=== PATIENT | female | born 1955 | race Caucasian/White ===

== ENCOUNTER → 2016-10-30 | Outpatient (REF) | payer OTHER ==
[~2016-10-30] MED LIST: LEXA1TAB2 PO; PRAV1TAB39 PO; PROT1TAB2 PO
[2016-10-30 13:58] LABS: ALBUMIN 3.7 GM/DL (3.2-5.2); ALBUMIN/GLOBULIN RATIO 1.19 (1.00-1.93); ALKALINE PHOSPHATASE 108 U/L (45-117); ALT/SGPT 19 U/L (12-78); ANION GAP 5 MEQ/L (8-16); AST/SGOT 12 U/L (15-37); BILIRUBIN,TOTAL 0.3 MG/DL (0.2-1.0); BLOOD UREA NITROGEN 16 MG/DL (7-18); CALCIUM LEVEL 8.9 MG/DL (8.8-10.2); CARBON DIOXIDE LEVEL 29 MEQ/L (21-32); CHLORIDE LEVEL 107 MEQ/L (98-107); CHOLESTEROL LEVEL 213 MG/DL (<200); CREATININE FOR GFR 0.84 MG/DL (0.55-1.02); GLOMERULAR FILTRATION RATE > 60.0 (>45); GLUCOSE, FASTING 82 MG/DL (80-110); POTASSIUM SERUM 4.4 MEQ/L (3.5-5.1); SODIUM LEVEL 141 MEQ/L (136-145); TOTAL PROTEIN 6.8 GM/DL (6.4-8.2); TRIGLYCERIDES LEVEL 130 MG/DL (<150)
== END ==
LOC: M SFHCPLAZ 10:29
PROVIDERS: ATTEND Internal Medicine
DX: E78.00 Pure hypercholesterolemia, unspecified (principal); E55.9 Vitamin D deficiency, unspecified

== ENCOUNTER → 2016-11-16 | Outpatient (CLI) | payer OTHER ==
--- NOTE | 2016-11-17 08:35 | REP ---
Clinical: Lung screening. History smoking. Comparison: None Technique: Axial low-dose noncontrast images from the thoracic inlet to the upper abdomen using lung screening technique. Findings: The lung matias are well-aerated. Two noncalcified pulmonary nodules are identified in the left upper lobe measuring up to 8 mm along with small scattered 2 mm nodules. No pleural effusion/reaction or pneumothorax. Tracheobronchial tree is patent. Mediastinum demonstrates mild atherosclerotic changes of the coronary arteries without cardiomegaly. Impression: Lung-RADS category IV-A. Recommendations include 3-month low-dose CT scan. . Signed by Carlos Venegas MD 11/17/2016 08:26 A
== END ==
LOC: M RAD 11:33
PROVIDERS: ATTEND Internal Medicine
DX: Z12.2 Encounter for screening for malignant neoplasm of respiratory organs (principal); F17.210 Nicotine dependence, cigarettes, uncomplicated; R91.1 Solitary pulmonary nodule

== ENCOUNTER → 2017-02-20 | Outpatient (CLI) | payer OTHER ==
--- NOTE | 2017-02-20 14:04 | REP ---
Clinical: Followup lung nodules. Technique: Low-dose CT pulmonary screening technique. Findings: 8 mm noncalcified pulmonary nodule in the left upper lobe (image 21) and left lower lobe (image 64) along with few scattered smaller noncalcified nodules up to 2 mm remain stable. No new consolidation, nodule or mass lesion is appreciated. No pleural effusion/reaction. No pneumothorax. Tracheobronchial tree is patent. No definite adenopathy noted. Impression: Stable appearance to the noncalcified nodules measuring up to approximately 8 mm short axis diameter. Follow-up examination and 6-[address] may be considered for further evaluation and follow-up. Signed by Carlos Venegas MD 02/20/2017 01:56 P
== END ==
LOC: M RAD 13:30
PROVIDERS: ATTEND Internal Medicine
DX: R91.1 Solitary pulmonary nodule (principal)

== ENCOUNTER → 2017-05-14 | Outpatient (REF) | payer OTHER ==
[2017-05-14 13:04] LABS: MEAN CORPUSCULAR HGB CONC 32.7 g/dl (32.0-36.5); MEAN CORPUSCULAR VOLUME 88.8 fl (80.0-96.0); PLATELET COUNT, AUTOMATED 334 10^3/uL (150-450); RED CELL DISTRIBUTION WIDTH 13.3 % (11.5-14.5); WHITE BLOOD COUNT 9.3 10^3/uL (4.0-10.0)
[2017-05-14 13:30] LABS: ALBUMIN 3.9 GM/DL (3.2-5.2); ALBUMIN/GLOBULIN RATIO 1.26 (1.00-1.93); ALKALINE PHOSPHATASE 111 U/L (45-117); ALT/SGPT 21 U/L (12-78); ANION GAP 9 MEQ/L (8-16); AST/SGOT 13 U/L (7-37); BILIRUBIN,TOTAL 0.3 MG/DL (0.2-1.0); BLOOD UREA NITROGEN 16 MG/DL (7-18); CALCIUM LEVEL 9.5 MG/DL (8.8-10.2); CARBON DIOXIDE LEVEL 29 MEQ/L (21-32); CHLORIDE LEVEL 103 MEQ/L (98-107); CHOLESTEROL LEVEL 248 MG/DL (<200); CREATININE FOR GFR 0.83 MG/DL (0.55-1.02); GLOMERULAR FILTRATION RATE > 60.0 (>45); GLUCOSE, FASTING 92 MG/DL (80-110); POTASSIUM SERUM 4.1 MEQ/L (3.5-5.1); SODIUM LEVEL 141 MEQ/L (136-145); TRIGLYCERIDES LEVEL 162 MG/DL (<150)
== END ==
LOC: M SFHCPLAZ 08:25
PROVIDERS: ATTEND Internal Medicine
DX: F51.01 Primary insomnia (principal); K21.9 Gastro-esophageal reflux disease without esophagitis; R73.01 Impaired fasting glucose; E78.00 Pure hypercholesterolemia, unspecified; F34.1 Dysthymic disorder

== ENCOUNTER 2017-07-21 19:13 | Emergency (ER) | payer OTHER ==
[2017-07-21] MEDS: NS 1,000 ML IV (20:57)
[2017-07-21] MEDS: KETOROLAC 30 MG/ML VIAL (J1885) IV (20:57)
[2017-07-21] MEDS: ONDANSETRON 4MG/2ML VIAL (J2405) IV (20:57)
[2017-07-21 21:01] LABS: BASO # 0.1 10^3/uL (0.0-0.2); BASO % 0.4 % (0.0-1.0); EOS # 0.3 10^3/uL (0.0-0.50); EOS % 1.9 % (0.0-3.0); HEMATOCRIT 43.8 % (36.0-47.0); HEMOGLOBIN 14.9 g/dl (12.0-16.0); IMMATURE GRANULOCYTE # 0.1 10^3/uL (0-0); IMMATURE GRANULOCYTE % 0.3 % (0-0); LYMPH # 2.5 10^3/uL (1.5-4.5); LYMPH % 17.3 % (24.0-44.0); MEAN CORPUSCULAR HEMOGLOBIN 29.6 pg (27.0-33.0); MEAN CORPUSCULAR VOLUME 86.9 fl (80.0-96.0); MONO % 6.9 % (0.0-5.0); NEUTROPHILS # 10.6 10^3/uL (1.8-7.7); NEUTROPHILS % 73.2 % (36.0-66.0); PLATELET COUNT, AUTOMATED 307 10^3/uL (150-450); RED BLOOD COUNT 5.04 10^6/uL (4.00-5.40); RED CELL DISTRIBUTION WIDTH 12.9 % (11.5-14.5); WHITE BLOOD COUNT 14.4 10^3/uL (4.0-10.0)
[2017-07-21 21:11] LABS: INR 0.94; PROTHROMBIN TIME 12.7 SECONDS (12.4-14.5)
[2017-07-21 21:12] LABS: PARTIAL THROMBOPLASTIN TIME 29.6 SECONDS (26.8-37.9)
[2017-07-21 21:21] LABS: KETONE, URINE AUTO RFX NEGATIVE (NEGATIVE); LEUKOCYTE ESTERASE UR AUTO RFX NEGATIVE (NEGATIVE); MUCUS, URINE RFX SMALL (NEGATIVE); NITRITE, URINE AUTO RFX NEGATIVE (NEGATIVE); RBC, URINE AUTO RFX 11 /HPF (0-3); SPECIFIC GRAVITY UR AUTO RFX 1.015 (1.002-1.035); SQUAM EPITHELIAL CELL UR AURFX 1 /HPF (0-6); WBC, URINE AUTO RFX 1 /HPF (0-3)
[2017-07-21 21:29] LABS: ALBUMIN 3.8 GM/DL (3.2-5.2); ALBUMIN/GLOBULIN RATIO 0.97 (1.00-1.93); ALKALINE PHOSPHATASE 108 U/L (45-117); ALT/SGPT 20 U/L (12-78); ANION GAP 6 MEQ/L (8-16); AST/SGOT 8 U/L (7-37); BILIRUBIN,DIRECT < 0.1 MG/DL (0.0-0.2); BILIRUBIN,TOTAL 0.4 MG/DL (0.2-1.0); BLOOD UREA NITROGEN 11 MG/DL (7-18); CALCIUM LEVEL 9.1 MG/DL (8.8-10.2); CARBON DIOXIDE LEVEL 28 MEQ/L (21-32); CHLORIDE LEVEL 104 MEQ/L (98-107); CREATININE FOR GFR 0.83 MG/DL (0.55-1.30); GLOMERULAR FILTRATION RATE > 60.0 (>45); GLUCOSE, FASTING 90 MG/DL (70-100); LIPASE 98 U/L (73-393); POTASSIUM SERUM 3.8 MEQ/L (3.5-5.1); SODIUM LEVEL 138 MEQ/L (136-145); TOTAL PROTEIN 7.7 GM/DL (6.4-8.2)
[2017-07-21] MEDS ORDERED: ISOVUE-370 76% 100ML VIAL (Q9967) As Ordered (21:35)
[2017-07-21] MEDS: metroNIDAZOLE (FLAGYL) 500 MG TAB PO (22:15)
[2017-07-21] MEDS: CIPROFLOXACIN 500 MG TAB PO (22:15)
[2017-07-21] MEDS: OXYCODONE/APAP 5MG/325MG(BULK FOR ED) 1 TABLET PO (22:15)
== END 2017-07-21 22:38 | disposition home or self-care (01) ==
LOC: M ED 19:13
DX: K57.92 Diverticulitis of intestine, part unspecified, without perforation or abscess without bleeding (principal); Z79.899 Other long term (current) drug therapy; Z88.2 Allergy status to sulfonamides; F17.210 Nicotine dependence, cigarettes, uncomplicated
CPT/HCPCS: J2405

== ENCOUNTER → 2017-08-14 | Outpatient (CLI) | payer OTHER ==
[2017-08-14 15:20] LABS: BASO # 0.1 10^3/uL (0.0-0.2); BASO % 0.7 % (0.0-1.0); EOS # 0.4 10^3/uL (0.0-0.50); HEMATOCRIT 44.9 % (36.0-47.0); HEMOGLOBIN 14.7 g/dl (12.0-16.0); IMMATURE GRANULOCYTE % 0.4 % (0-3.0); LYMPH # 2.7 10^3/uL (1.5-4.5); LYMPH % 27.6 % (24.0-44.0); MEAN CORPUSCULAR HEMOGLOBIN 29.3 pg (27.0-33.0); MEAN CORPUSCULAR HGB CONC 32.7 g/dl (32.0-36.5); MEAN CORPUSCULAR VOLUME 89.6 fl (80.0-96.0); MONO # 0.6 10^3/uL (0.0-0.8); MONO % 6.4 % (0.0-5.0); NEUTROPHILS # 5.9 10^3/uL (1.8-7.7); NEUTROPHILS % 60.9 % (36.0-66.0); PLATELET COUNT, AUTOMATED 338 10^3/uL (150-450); RED BLOOD COUNT 5.01 10^6/uL (4.00-5.40); RED CELL DISTRIBUTION WIDTH 13.8 % (11.5-14.5); WHITE BLOOD COUNT 9.6 10^3/uL (4.0-10.0)
== END ==
LOC: M LAB 14:31
DX: K57.32 Diverticulitis of large intestine without perforation or abscess without bleeding (principal)

== ENCOUNTER → 2017-11-21 | Outpatient (REF) | payer OTHER ==
[2017-11-21 12:43] LABS: ALBUMIN 3.9 GM/DL (3.2-5.2); ALKALINE PHOSPHATASE 118 U/L (45-117); ALT/SGPT 19 U/L (12-78); ANION GAP 8 MEQ/L (8-16); AST/SGOT 6 U/L (7-37); BILIRUBIN,TOTAL 0.4 MG/DL (0.2-1.0); BLOOD UREA NITROGEN 13 MG/DL (7-18); CALCIUM LEVEL 9.3 MG/DL (8.8-10.2); CARBON DIOXIDE LEVEL 27 MEQ/L (21-32); CHLORIDE LEVEL 105 MEQ/L (98-107); CHOLESTEROL LEVEL 204 MG/DL (<200); CHOLESTEROL RISK RATIO 6.181 (<5); CREATININE FOR GFR 0.77 MG/DL (0.55-1.30); GLOMERULAR FILTRATION RATE > 60.0 (>45); GLUCOSE, FASTING 88 MG/DL (70-100); HDL CHOLESTEROL 33 MG/DL (>40); NON-HDL-C 171 MG/DL; POTASSIUM SERUM 4.5 MEQ/L (3.5-5.1); SODIUM LEVEL 140 MEQ/L (136-145); TOTAL PROTEIN 6.9 GM/DL (6.4-8.2); TRIGLYCERIDES LEVEL 135 MG/DL (<150)
== END ==
LOC: M SFHCPLAZ 10:21
DX: R73.01 Impaired fasting glucose (principal); E78.00 Pure hypercholesterolemia, unspecified

== ENCOUNTER → 2017-11-28 | Outpatient (CLI) | payer OTHER | LOC: M WUC 10:42 | DX: M79.671 Pain in right foot (principal) | CPT/HCPCS: 73630 ==

== ENCOUNTER → 2018-01-14 | Outpatient (REF) | payer OTHER ==
[2018-01-14 14:11] LABS: BASO # 0.1 10^3/uL (0.0-0.2); BASO % 0.7 % (0.0-1.0); EOS # 0.3 10^3/uL (0.0-0.50); EOS % 3.5 % (0.0-3.0); HEMATOCRIT 45.5 % (36.0-47.0); HEMOGLOBIN 15.3 g/dl (12.0-15.5); IMMATURE GRANULOCYTE % 0.4 % (0-3.0); LYMPH # 2.5 10^3/uL (1.5-4.5); LYMPH % 29.7 % (24.0-44.0); MEAN CORPUSCULAR HGB CONC 33.6 g/dl (32.0-36.5); MEAN CORPUSCULAR VOLUME 89.2 fl (80.0-96.0); MONO # 0.5 10^3/uL (0.0-0.8); MONO % 5.6 % (0.0-5.0); NEUTROPHILS % 60.1 % (36.0-66.0); PLATELET COUNT, AUTOMATED 283 10^3/uL (150-450); RED CELL DISTRIBUTION WIDTH 13.2 % (11.5-14.5); WHITE BLOOD COUNT 8.4 10^3/uL (4.0-10.0)
[2018-01-16 00:14] LABS: ANTINUCLEAR ANTIBODIES DIRECT Negative (Negative); Lyme Disease IgG/IgM Antibodie <0.91 ISR (0.00-0.90); Lyme Disease IgM Ab Quantitati <0.80 index (0.00-0.79)
== END ==
LOC: M SFHCPLAZ 12:15
DX: S30.860A Insect bite (nonvenomous) of lower back and pelvis, initial encounter (principal); L50.9 Urticaria, unspecified; W18.30XA Fall on same level, unspecified, initial encounter; Y92.009 Unspecified place in unspecified non-institutional (private) residence as the place of occurrence of the external cause

== ENCOUNTER → 2018-03-25 | Outpatient (CLI) | payer OTHER | LOC: M RAD 10:43 | DX: R91.8 Other nonspecific abnormal finding of lung field (principal) | CPT/HCPCS: 71250 ==

== ENCOUNTER → 2018-07-30 | Outpatient (CLI) | payer OTHER ==
[~2018-07-30] MED LIST changes: +CIPR-249 PO; +FLAG500T PO; +PROBCAP4 PO; +STOO100C PO; +ZOFR4TAB14 PO
--- NOTE | 2018-07-30 15:41 | REP ---
Chest two views HISTORY: Cough Comparison: 08/14/2011 The lungs are clear. The heart is normal in size. The pulmonary vasculature is normal in appearance. The bony structure is intact. IMPRESSION: No acute disease. Electronically Signed by Santos Salcedo MD 07/30/2018 03:32 P
== END ==
LOC: M WUC 14:24
PROVIDERS: ATTEND Internal Medicine
DX: R05 Cough (principal)

== ENCOUNTER → 2018-09-12 | Outpatient (REF) | payer OTHER ==
[2018-09-12 14:16] LABS: ALBUMIN 3.8 GM/DL (3.2-5.2); ALT/SGPT 21 U/L (12-78); BILIRUBIN,TOTAL 0.3 MG/DL (0.2-1.0); BLOOD UREA NITROGEN 15 MG/DL (7-18); CALCIUM LEVEL 9.5 MG/DL (8.8-10.2); CARBON DIOXIDE LEVEL 27 MEQ/L (21-32); CHLORIDE LEVEL 105 MEQ/L (98-107); CHOLESTEROL LEVEL 226 MG/DL (<200); CHOLESTEROL RISK RATIO 5.947 (<5); CREATININE FOR GFR 0.77 MG/DL (0.55-1.30); GLOMERULAR FILTRATION RATE > 60.0 (>45); GLUCOSE, FASTING 87 MG/DL (70-100); HDL CHOLESTEROL 38 MG/DL (>40); LDL CHOLESTEROL 164 MG/DL (<100); NON-HDL-C 188 MG/DL; POTASSIUM SERUM 4.2 MEQ/L (3.5-5.1); SODIUM LEVEL 141 MEQ/L (136-145); TOTAL PROTEIN 6.9 GM/DL (6.4-8.2); TRIGLYCERIDES LEVEL 120 MG/DL (<150)
[2018-09-12 14:22] LABS: TOTAL 25(OH) VITAMIN D 101.8 NG/ML (30.0-100.0)
== END ==
LOC: M SFHCPLAZ 11:21
PROVIDERS: ATTEND Internal Medicine
DX: R73.01 Impaired fasting glucose (principal); E78.00 Pure hypercholesterolemia, unspecified; E55.9 Vitamin D deficiency, unspecified

== ENCOUNTER → 2018-09-25 | Outpatient (CLI) | payer OTHER ==
--- NOTE | 2018-09-25 15:29 | REPMRS ---
Patient History The patient states she has not had a clinical breast exam in over a year. Patient is postmenopausal and is nulliparous. Family history of colorectal cancer under age 50 in father, endometrial cancer at age 50 or over in mother. Digital Woman Screen Mammo: September 25, 2018 - Exam #: [id number] Bilateral CC and MLO view(s) were taken. Technologist: Jaki Beckford, Technologist Prior study comparison: November 05, 2015, digital woman screen mammo performed at [facility]. July 12, 2010, bilateral screening mammogram, performed at [facility]. FINDINGS: There are scattered fibroglandular densities. There has been no change in the appearance of the mammogram from the prior studies. There is a mild amount of scattered fibroglandular density which is fairly symmetric. There is no interval development of dominant mass, architectural distortion, or clustered microcalcification suggestive of malignancy. 3-D tomosynthesis shows no additional findings. Assessment: BI-RADS/ACR category 1 mammogram. Negative Mammogram. Recommendation Routine screening mammogram of both breasts in 1 year (for women over age 40). This patient's Lifetime Breast Cancer RIsk is estimated at 7.5 %. This mammogram was interpreted with the aid of an FDA-approved computer-aided dectection system. Electronically Signed By: Darrius Olson MD 09/25/18 [id number]
== END ==
LOC: M WHC 11:59
PROVIDERS: ATTEND Internal Medicine
DX: Z12.31 Encounter for screening mammogram for malignant neoplasm of breast (principal); Z78.0 Asymptomatic menopausal state; Z80.0 Family history of malignant neoplasm of digestive organs; Z80.49 Family history of malignant neoplasm of other genital organs

== ENCOUNTER 2018-11-27 10:59 | Emergency (ER) | payer OTHER ==
[~2018-11-27] VITALS: Ht 160 cm; Wt 81.7 kg
[2018-11-27] MEDS ORDERED: VITATAB26 PO (11:11)
[2018-11-27] MEDS ORDERED: NS 1,000 ML IV ONE (12:45)
[2018-11-27] MEDS ORDERED: GASTROGRAFIN SOLUTION 30ML (Q9963) As Ordered ONE (12:50)
[2018-11-27 12:57] LABS: BASO # 0.1 10^3/uL (0.0-0.2); EOS # 0.2 10^3/uL (0.0-0.50); EOS % 2.7 % (0.0-3.0); HEMATOCRIT 44.2 % (36.0-47.0); HEMOGLOBIN 14.6 g/dl (12.0-15.5); LYMPH # 2.3 10^3/uL (1.5-4.5); LYMPH % 33.6 % (24.0-44.0); MEAN CORPUSCULAR HEMOGLOBIN 29.4 pg (27.0-33.0); MEAN CORPUSCULAR VOLUME 89.1 fl (80.0-96.0); MONO # 0.4 10^3/uL (0.0-0.8); MONO % 5.5 % (0.0-5.0); NEUTROPHILS # 3.9 10^3/uL (1.8-7.7); NEUTROPHILS % 56.9 % (36.0-66.0); PLATELET COUNT, AUTOMATED 318 10^3/uL (150-450); RED BLOOD COUNT 4.96 10^6/uL (4.00-5.40); WHITE BLOOD COUNT 6.8 10^3/uL (4.0-10.0)
[2018-11-27 13:24] LABS: BLOOD UREA NITROGEN 12 MG/DL (7-18); CALCIUM LEVEL 9.3 MG/DL (8.8-10.2); CARBON DIOXIDE LEVEL 26 MEQ/L (21-32); CHLORIDE LEVEL 106 MEQ/L (98-107); CREATININE FOR GFR 0.88 MG/DL (0.55-1.30); GLOMERULAR FILTRATION RATE > 60.0 (>45); GLUCOSE, FASTING 89 MG/DL (70-100); POTASSIUM SERUM 4.1 MEQ/L (3.5-5.1); SODIUM LEVEL 141 MEQ/L (136-145)
[2018-11-27] MEDS ORDERED: ISOVUE-370 76% 100ML VIAL (Q9967) As Ordered ONE (13:30)
--- NOTE | 2018-11-27 14:16 | REP ---
CT ABDOMEN PELVIS WITH IV AND RECTAL CONTRAST. HISTORY: Pelvic pain. Brown vaginal discharge. 100 mL of intravenous Isovue 370 is administered in addition to rectal Gastrografin. CT FINDINGS: Digital preliminary tower switch operator radiograph shows an unremarkable bowel gas pattern. The lung bases are free of infiltrate. There is however a phoenix-bronchovascular noncalcified pulmonary nodule in the left lower lobe which measures 12 mm in greatest diameter. This nodule has been previously noted. In November 16, 2016 it measured 11 mm. It is felt to be unchanged. The liver and the spleen are normal in size. There are several left lobe hepatic cysts. The largest of these measures 3.1 cm in greatest diameter. These are unchanged from a December 07, [address] study. No focal liver mass lesion is seen. Spleen is unremarkable. No adrenal lesion is observed on either side. The pancreas is unremarkable. Gallbladder surgically absent. There is a tiny cortical cyst in the right kidney. No hydronephrosis is seen. No retroperitoneal mass or adenopathy is seen. The left colon is opacified from the rectum proximally to the mid transverse colon segment. There is no evidence of extravasation. There is however extensive diverticulosis in the sigmoid colon. This is seen associated with a fistulous tract extending from the anterior and inferior margin of the sigmoid colon to what appears to be the superior aspect of the vagina. There is inflammatory thickening of the dome of the bladder wall as well adjacent to this. 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 No evidence of free air or abscess cavity. IMPRESSION: Extensive diverticulosis sigmoid colon with mural thickening consistent with diverticulitis. A very small fistulous tract appears to be present between this segment of the sigmoid colon and the vaginal fornix. Uterus is surgically absent as is the gallbladder. Lung nodule is seen. Electronically Signed by Rogelio Olson MD 11/27/2018 08:30 P
[2018-11-27] MEDS ORDERED: FLAG500T PO (14:48)
[2018-11-27] MEDS ORDERED: CIPR-249 PO (14:48)
[2018-11-27] MEDS ORDERED: MIRA3350 PO (14:48)
[2018-11-27] MEDS ORDERED: COLA100C5 PO (14:48)
[2018-11-27 14:55] VITALS: BP 153/74
--- NOTE | 2018-11-29 06:48 | ED PDOC ---
Post-Departure Follow-Up dr linton and dr hood faxed formal report of ct abd/p for fu Fredrick Lewis MD Nov 29, 2018 06:48
== END 2018-11-27 15:16 | disposition home or self-care (01) ==
LOC: M ED 10:59
DX: N82.3 Fistula of vagina to large intestine (principal); K57.32 Diverticulitis of large intestine without perforation or abscess without bleeding; R91.1 Solitary pulmonary nodule; Z72.0 Tobacco use; Z79.899 Other long term (current) drug therapy; Z88.2 Allergy status to sulfonamides; Z88.0 Allergy status to penicillin
CPT/HCPCS: 74177; 80048; 81001; 85025; 86850; 86900; 86901; 96360; 96361; 99284; Q9963; Q9967

== ENCOUNTER → 2018-12-18 | Outpatient (CLI) | payer OTHER ==
[~2018-12-18] MED LIST changes: +COLA100C5 PO; +GASTROGRAFIN SOLUTION 30ML (Q9963) As Ordered ONE; +ISOVUE-370 76% 100ML VIAL (Q9967) As Ordered ONE; +MIRA3350 PO; +MM S100C PO; -STOO100C PO; +VITATAB26 PO
--- NOTE | 2018-12-18 16:11 | REP ---
HISTORY: Diverticulitis. COMPARISON: Multiple, the latest 11/27/2018. CONTRAST: 100 mL of Isovue-370. In the left lung base there is an unchanged nodule measuring 1.3 cm and stable from the low dose screening CT exam of the lungs of 11/16/2016. There are no pleural or pericardial effusions. There are multiple hepatic cysts, status quo. The liver and spleen are again seen to be within normal limits. There is benign left adrenal gland thickening, stable from at least 12/07/2015. The pancreas and kidneys are unremarkable and unchanged. The right adrenal gland is normal. The abdominal aorta and periaortic regions are within normal limits and essentially unchanged. The intraabdominal bowel loops and the mesenteries are again seen to be within normal limits and are essentially unchanged. No free fluid or free air is in the abdomen. CT PELVIS: Note is again made of sigmoid colon wall thickening and mild perisigmoidal fatty infiltration. This has improved from the prior exam, but only slightly. There is no evidence of an abscess. There is no free fluid or free air. There is no mass or adenopathy. Bone window technique throughout the exam shows the osseous structures to be stable and intact. IMPRESSION: 1. Improved but not yet resolved sigmoid colon diverticulitis. Consider colonoscopy to assess for an underlying neoplasm. 2. Other findings and chronic changes as described above. Electronically Signed by Tremayne Patel DO 12/18/2018 04:28 P
== END ==
LOC: M RAD 12:28
PROVIDERS: ATTEND Surgery
DX: K57.32 Diverticulitis of large intestine without perforation or abscess without bleeding (principal)
CPT/HCPCS: 74177; Q9963; Q9967

== ENCOUNTER → 2018-12-26 | Outpatient (REF) | payer OTHER ==
[~2018-12-26] MED LIST changes: -GASTROGRAFIN SOLUTION 30ML (Q9963) As Ordered ONE; -ISOVUE-370 76% 100ML VIAL (Q9967) As Ordered ONE
[2018-12-26 17:14] LABS: CLOSTRIDIUM DIFFICILE PCR POSITIVE (NEGATIVE)
== END ==
LOC: M LAB REF 13:42
PROVIDERS: ATTEND Surgery
DX: K57.32 Diverticulitis of large intestine without perforation or abscess without bleeding (principal)

== ENCOUNTER → 2019-01-02 | Outpatient (REF) | payer OTHER | LOC: M SFHCPLAZ 10:01 | PROVIDERS: ATTEND Family Medicine | DX: R21 Rash and other nonspecific skin eruption (principal) ==

== ENCOUNTER → 2019-02-05 | Outpatient (REF) | payer OTHER ==
[~2019-02-05] MED LIST changes: +ACE65ERTAB PO; +METR-265; +NEOM500T; +SUPRSOL2
[2019-02-05 14:48] LABS: ALBUMIN 3.7 GM/DL (3.2-5.2); ALT/SGPT 15 U/L (12-78); BILIRUBIN,TOTAL 0.2 MG/DL (0.2-1.0); BLOOD UREA NITROGEN 16 MG/DL (7-18); CALCIUM LEVEL 9.6 MG/DL (8.8-10.2); CARBON DIOXIDE LEVEL 28 MEQ/L (21-32); CHLORIDE LEVEL 105 MEQ/L (98-107); CHOLESTEROL LEVEL 214 MG/DL (<200); CHOLESTEROL RISK RATIO 5.783 (<5); CREATININE FOR GFR 0.79 MG/DL (0.55-1.30); GLOMERULAR FILTRATION RATE > 60.0 (>45); GLUCOSE, FASTING 83 MG/DL (70-100); HDL CHOLESTEROL 37 MG/DL (>40); LDL CHOLESTEROL 147 MG/DL (<100); NON-HDL-C 177 MG/DL; POTASSIUM SERUM 4.3 MEQ/L (3.5-5.1); SODIUM LEVEL 140 MEQ/L (136-145); TOTAL PROTEIN 7.1 GM/DL (6.4-8.2); TRIGLYCERIDES LEVEL 148 MG/DL (<150)
[2019-02-05 15:13] LABS: HEMOGLOBIN A1c 6.4 %
== END ==
LOC: M SFHCPLAZ 12:06
PROVIDERS: ATTEND Internal Medicine
DX: E78.00 Pure hypercholesterolemia, unspecified (principal); R73.01 Impaired fasting glucose; F34.1 Dysthymic disorder

== ENCOUNTER 2019-02-11 05:58 | Inpatient (IN) | payer OTHER ==
--- NOTE | 2019-02-10 15:44 | HPE ---
DATE OF ADMISSION: 02/11/2019 HISTORY OF PRESENT ILLNESS: The patient is a 64-year-old female who presents with several episodes of diverticulitis in the past, actually with a probable diverticular abscess that drained spontaneously through her vagina and essentially has had some persistent partial obstructive complaints since that time with abdominal pain and lower abdominal pressure or discomfort and change in bowel habits. She now presents for treatment of recurrent episodes of diverticulitis. PAST MEDICAL HISTORY: Her past medical history is significant for history of hysterectomy, history of gallbladder surgery, history of cholecystectomy, history of hyperlipidemia, depression, anxiety. MEDICATIONS: - Carafate - Crestor - Estrace - Lexapro - Metamucil - Protonix - stool softener - vitamin D She is undergoing a mechanical, as well as antibiotic bowel prep. PHYSICAL EXAMINATION: Reveals a 64-year-old chronic smoker who looks stated age. HEENT is unremarkable. Neck: Supple without adenopathy. Lungs are diminished bilaterally with a few crackles and wheezes appreciated at the bases. Heart is regular. Abdomen is soft, nondistended, mildly tender with deep palpation in left lower quadrant and suprapubic area. Extremities: Warm, well-perfused. IMPRESSION AND PLAN: The patient has evidence of recurrent episodes of diverticulitis of the sigmoid colon. My recommendation is to proceed with a laparoscopic sigmoid colectomy with low anterior anastomosis. The risks, as well as benefits have been discussed with her at length, those including but not limited to infection, bleeding, damage to surrounding structures including bowel, bladder nerve vessels, possible need for open operative intervention, possible anastomotic leak or colostomy placement. She would like to proceed with this as scheduled and understands she will be going through a mechanical, as well as antibiotic bowel prep and receive IV antibiotics preoperatively. Will have thromboembolic compression stockings (TEDS), Wang catheter placed intraoperatively and postoperatively and will need postoperative hospitalization for typically 3-5 days. She understands and agrees to the above.
[~2019-02-11] VITALS: Ht 160 cm; Wt 75.6 kg
[2019-02-11] VITALS (10 sets, daily range): BP systolic 118–160; BP diastolic 60–78
[~2019-02-11 05:58] MED LIST changes: -METR-265; -NEOM500T; -SUPRSOL2
[2019-02-11] MEDS ORDERED: LIDOCAINE 1% MDV 20ML VIAL SQ PRN (06:00)
[2019-02-11] MEDS ORDERED: ERTAPENEM SODIUM 1 GM in NS MINI-BAG PLUS 50 ML IV ONE (06:00)
[2019-02-11] MEDS ORDERED: LR 1,000 ML IV ONE (06:00)
[2019-02-11] MEDS ORDERED: BUPIVACAINE HCL 0.25% 30 ML VIAL As Ordered ONE (06:56)
[2019-02-11] MEDS ORDERED: GLUCAGON FOR INJ 1 MG VIAL (J1610) As Ordered ONE ×2 (06:56→09:04)
[2019-02-11] MEDS ORDERED: BUPIVACAINE/EPIN 0.5% 30 ML VIAL As Ordered ONE (06:57)
[2019-02-11] MEDS ORDERED: BUPIVACAINE LIPOSOME/PF 1.3% 20ML VIAL (13.3MG/ML)(EXPAREL)(C9290 PER1MG) As Ordered ONE (06:57)
[2019-02-11] MEDS ORDERED: SUPRSOL2 (07:11)
[2019-02-11] MEDS ORDERED: NEOM500T (07:11)
[2019-02-11] MEDS ORDERED: METR-265 (07:11)
[2019-02-11] MEDS ORDERED: SCOPOLAMINE 1MG TRANSDERMAL PATCH As Ordered ONE (07:28)
[2019-02-11] MEDS ORDERED: ONDANSETRON 4MG/2ML VIAL (J2405) As Ordered ONE ×2 (07:49→07:50)
[2019-02-11] MEDS ORDERED: LIDOCAINE 2% INJ 100 MG/5 ML SDV (FOR ANES.) As Ordered ONE (07:49)
[2019-02-11] MEDS ORDERED: PROPOFOL 200 MG/20 ML VIAL As Ordered ONE (07:49)
[2019-02-11] MEDS ORDERED: MIDAZOLAM INJ 2 MG/2 ML VIAL (J2250) As Ordered ONE (07:49)
[2019-02-11] MEDS ORDERED: HYDROmorphone HCL 2 MG/ML 1ML VIAL (J1170) As Ordered ONE (07:49)
[2019-02-11] MEDS ORDERED: dexameTHASONE 4 MG/ML 1ML VIAL (J1100) As Ordered ONE (07:49)
[2019-02-11] MEDS ORDERED: SUGAMMADEX SODIUM 500 MG/5 ML VIAL (BRIDION) As Ordered ONE (07:49)
[2019-02-11] MEDS ORDERED: PHENYLephrine HCL 500 MCG/5 ML (100MCG/ML) SYRINGE (J2370) As Ordered ONE (07:49)
[2019-02-11] MEDS ORDERED: ROCURONIUM BROMIDE 50 MG/5 ML VIAL As Ordered ONE ×3 (07:49→11:36)
[2019-02-11] MEDS ORDERED: fentaNYL 250 MCG/5 ML INJECTION (J3010) As Ordered ONE (07:49)
[2019-02-11] MEDS ORDERED: METOCLOPRAMIDE INJ 10MG/2ML VIAL (J2765) As Ordered ONE ×2 (07:49→07:50)
[2019-02-11] MEDS ORDERED: LIDOCAINE 2% JELLY 6 ML SYRINGE As Ordered ONE (07:50)
[2019-02-11] MEDS ORDERED: KETOROLAC 60 MG/2 ML VIAL (J1885) As Ordered ONE (08:06)
[2019-02-11] MEDS ORDERED: SEVOFLURANE INHAL SOLN 250 ML BTL As Ordered ONE (08:10)
[2019-02-11] MEDS ORDERED: ACETAMINOPHEN 1000MG 100ML IV BTL (OFIRMEV) (J0131 PER 10MG) As Ordered ONE (08:31)
[2019-02-11] MEDS ORDERED: DESFLURANE 240 ML INHALANT As Ordered ONE (10:01)
[2019-02-11] MEDS ORDERED: EPIDURAL/PCA KEYS XX PRN (10:15)
[2019-02-11] MEDS ORDERED: NS 1,000 ML IV SCH (10:15)
[2019-02-11] MEDS ORDERED: NALBUPHINE HCL 10 MG/ML AMP (J2300) IV PRN (10:15)
[2019-02-11] MEDS ORDERED: IPRATROPIUM 0.5MG/ALBUTEROL 2.5MG INH SOL UD 3ML (DUONEB)(J7620) NEB PRN (10:15)
[2019-02-11] MEDS ORDERED: NALOXONE INJ 0.4 MG/1 ML VIAL (J2310) IV PRN (10:15)
[2019-02-11] MEDS ORDERED: MORPHINE 1MG/ML IN 0.9% NACL 100ML IV BAG IV PRN (10:15)
[2019-02-11] MEDS ORDERED: ONDANSETRON 4MG/2ML VIAL (J2405) IV PRN ×2 (10:15→11:00)
[2019-02-11] MEDS ORDERED: diphenhydrAMINE INJ 50MG/ML VIAL (J1200) IV PRN (10:15)
[2019-02-11] MEDS ORDERED: MORPHINE 1MG/ML IN 0.9% NACL 100ML IV BAG As Ordered ONE (10:26)
[2019-02-11] MEDS ORDERED: fentaNYL 100 MCG/2 ML INJECTION (J3010) IV PRN (11:00)
[2019-02-11] MEDS ORDERED: LR 1,000 ML IV SCH (11:00)
[2019-02-11] MEDS ORDERED: MORPHINE 10 MG/ML 1ML VIAL (J2270) IV PRN (11:00)
[2019-02-11] MEDS ORDERED: ALBUTEROL 6.7GM INHALER **FOR ANES. CART/OMNICELL ONLY As Ordered ONE (11:21)
[2019-02-11] MEDS: PANTOPRAZOLE 40MG INJ (PROTONIX) (C9113) IV SCH (14:00)
[2019-02-11] MEDS: KETOROLAC 30 MG/ML VIAL (J1885) IV SCH ×2 (14:00→22:32)
[2019-02-11] MEDS: NS 1,000 ML IV SCH ×2 (14:18→22:30)
[2019-02-11] MEDS: ALVIMOPAN 12 MG CAPSULE (ENTEREG) PO SCH ×2 (15:34→22:31)
[2019-02-11] MEDS: NICOTINE 21MG/24HR 1 EA TRANSDERMAL TD SCH (16:23)
[2019-02-11] MEDS: IPRATROPIUM 0.5MG/ALBUTEROL 2.5MG INH SOL UD 3ML (DUONEB)(J7620) NEB SCH ×2 (17:53→19:34)
[2019-02-11] MEDS: PRAVASTATIN 20 MG TAB PO SCH (22:31)
[2019-02-12] MEDS: IPRATROPIUM 0.5MG/ALBUTEROL 2.5MG INH SOL UD 3ML (DUONEB)(J7620) NEB SCH ×3 (00:46→14:18)
[2019-02-12 02:15] VITALS: BP 122/60
[2019-02-12] MEDS: NS 1,000 ML IV SCH ×3 (02:15→19:36)
[2019-02-12] MEDS: KETOROLAC 30 MG/ML VIAL (J1885) IV SCH ×4 (03:12→23:20)
[2019-02-12 05:09] VITALS: BP 111/62
[2019-02-12 06:07] LABS: HEMATOCRIT 34.4 % (36.0-47.0); HEMOGLOBIN 11.3 g/dl (12.0-15.5); MEAN CORPUSCULAR HEMOGLOBIN 29.5 pg (27.0-33.0); MEAN CORPUSCULAR HGB CONC 32.8 g/dl (32.0-36.5); MEAN CORPUSCULAR VOLUME 89.8 fl (80.0-96.0); PLATELET COUNT, AUTOMATED 252 10^3/uL (150-450); RED BLOOD COUNT 3.83 10^6/uL (4.00-5.40); WHITE BLOOD COUNT 11.4 10^3/uL (4.0-10.0)
[2019-02-12 06:15] VITALS: BP 118/65
[2019-02-12 06:32] LABS: ALBUMIN 2.8 GM/DL (3.2-5.2); ALT/SGPT 17 U/L (12-78); BILIRUBIN,TOTAL 0.3 MG/DL (0.2-1.0); BLOOD UREA NITROGEN 14 MG/DL (7-18); CALCIUM LEVEL 8.5 MG/DL (8.8-10.2); CARBON DIOXIDE LEVEL 27 MEQ/L (21-32); CHLORIDE LEVEL 111 MEQ/L (98-107); CREATININE FOR GFR 0.78 MG/DL (0.55-1.30); GLOMERULAR FILTRATION RATE > 60.0 (>45); GLUCOSE, FASTING 95 MG/DL (70-100); POTASSIUM SERUM 4.2 MEQ/L (3.5-5.1); SODIUM LEVEL 140 MEQ/L (136-145); TOTAL PROTEIN 5.8 GM/DL (6.4-8.2)
[2019-02-12] MEDS ORDERED: ERTAPENEM SODIUM 1 GM in NS MINI-BAG PLUS 50 ML IV ONE (08:00)
[2019-02-12] MEDS: PANTOPRAZOLE 40MG INJ (PROTONIX) (C9113) IV SCH (09:03)
[2019-02-12] MEDS: ESCITALOPRAM OXALATE 10 MG TAB (LEXAPRO) PO SCH (09:03)
[2019-02-12] MEDS: NICOTINE 21MG/24HR 1 EA TRANSDERMAL TD SCH (09:03)
[2019-02-12] MEDS: ALVIMOPAN 12 MG CAPSULE (ENTEREG) PO SCH ×2 (09:03→23:19)
[2019-02-12 10:00] VITALS: BP 115/63
[2019-02-12 14:00] VITALS: BP 116/64
[2019-02-12] MEDS ORDERED: LEVALBUTEROL 1.25 MG/0.5 ML CONCENTRATE NEB INH PRN (17:00)
[2019-02-12] MEDS ORDERED: LEVALBUTEROL 1.25 MG/0.5 ML CONCENTRATE NEB INH SCH (18:00)
[2019-02-12 22:00] VITALS: BP 132/58
[2019-02-12] MEDS ORDERED: NS 1,000 ML IV SCH (23:15)
[2019-02-12] MEDS ORDERED: SIMETHICONE 80 MG CHEW TAB PO SCH (23:15)
[2019-02-12] MEDS: PRAVASTATIN 20 MG TAB PO SCH (23:20)
[2019-02-12] MEDS ORDERED: PILL CUTTER 1 EACH XX PRN (23:30)
[2019-02-13 02:00] VITALS: BP 120/64
[2019-02-13] MEDS: KETOROLAC 30 MG/ML VIAL (J1885) IV SCH ×4 (04:05→20:19)
[2019-02-13 06:00] VITALS: BP 143/71
[2019-02-13 06:15] LABS: HEMATOCRIT 33.9 % (36.0-47.0); HEMOGLOBIN 11.1 g/dl (12.0-15.5); MEAN CORPUSCULAR HEMOGLOBIN 29.5 pg (27.0-33.0); MEAN CORPUSCULAR HGB CONC 32.7 g/dl (32.0-36.5); MEAN CORPUSCULAR VOLUME 90.2 fl (80.0-96.0); PLATELET COUNT, AUTOMATED 231 10^3/uL (150-450); RED BLOOD COUNT 3.76 10^6/uL (4.00-5.40); WHITE BLOOD COUNT 8.4 10^3/uL (4.0-10.0)
[2019-02-13 06:41] LABS: ALT/SGPT 16 U/L (12-78); BILIRUBIN,TOTAL 0.3 MG/DL (0.2-1.0); BLOOD UREA NITROGEN 9 MG/DL (7-18); CALCIUM LEVEL 8.2 MG/DL (8.8-10.2); CARBON DIOXIDE LEVEL 27 MEQ/L (21-32); CHLORIDE LEVEL 111 MEQ/L (98-107); CREATININE FOR GFR 0.72 MG/DL (0.55-1.30); GLOMERULAR FILTRATION RATE > 60.0 (>45); GLUCOSE, FASTING 81 MG/DL (70-100); POTASSIUM SERUM 3.7 MEQ/L (3.5-5.1); SODIUM LEVEL 142 MEQ/L (136-145); TOTAL PROTEIN 5.9 GM/DL (6.4-8.2)
[2019-02-13] MEDS: ESCITALOPRAM OXALATE 10 MG TAB (LEXAPRO) PO SCH (09:23)
[2019-02-13] MEDS: SIMETHICONE 80 MG CHEW TAB PO SCH ×4 (09:23→20:18)
[2019-02-13] MEDS: ALVIMOPAN 12 MG CAPSULE (ENTEREG) PO SCH ×2 (09:23→20:18)
[2019-02-13] MEDS: PANTOPRAZOLE 40MG INJ (PROTONIX) (C9113) IV SCH (09:23)
[2019-02-13] MEDS: NICOTINE 21MG/24HR 1 EA TRANSDERMAL TD SCH (09:24)
[2019-02-13 10:00] VITALS: BP 152/77
[2019-02-13] MEDS ORDERED: MORPHINE 4 MG/ML 1ML VIAL/SYRINGE (J2270) IV PRN (13:30)
--- NOTE | 2019-02-13 13:36 | IPN ---
DATE: 02/12/2019 The patient is postoperative day #1 from a laparoscopic sigmoid colectomy with a coloproctostomy and overall has done well from her surgical standpoint. She has had some minimal pain and discomfort, but otherwise is feeling pretty good. She has had no nausea and is thirsty at this time. She desired her Wang to be removed earlier this morning and that was removed. She has tolerated that and has been able to urinate on her own and she has been up and out of bed. Her vital signs have been stable. Her ins and outs show good urine output. Extremities have been warm and well-perfused. Her abdomen is softly distended, nontender except at the right lower quadrant 12 mm trocar site as well as the midline to some extent, but otherwise no guarding, rebound or peritoneal signs are appreciated. IMPRESSION AND PLAN: The patient is status post sigmoid colectomy and seems to be making some good progress at this time. I anticipate that we will continue with her on her clear liquids for now and will see how she does overnight. If she is making some good progress, will start her on a progressive diet tomorrow and then probably discontinue her COSTUME SEAMSTRESS, etc. Otherwise, I have encouraged her to increase her activity and continue with the incentive spirometry.
--- NOTE | 2019-02-13 13:42 | IPN ---
DATE: 02/13/2019 Subjectively, the patient seems to be doing well. She had some bloating last night and a little bit of nausea and today still feels pretty bloated. She is not having any flatus. No bowel movements. She has some "gurgling", but otherwise seems to be still feeling quite full. The patient otherwise is not complaining of any respiratory issues and has had great urine output. PHYSICAL EXAMINATION: Incision is clean, dry, healing, without any erythema, drainage or discharge. Garret-Moreno drain did picked edge sewing machine operator a little bit, now it is serosanguineous instead of sanguinous like it originally was. It is more watery at this point and looks better from a typical postoperative standpoint. IMPRESSION AND PLAN: The patient has tolerated clears, but she is still a little distended and thus I will keep her at the clears for now and probably start her on some food tomorrow. Will see how she does over overnight, but I would like to change her from her AUTO PARTS HANDLER to some by mouth pain medications and will see how she does with that as well.
[2019-02-13 14:00] VITALS: BP 150/76
[2019-02-13 18:00] VITALS: BP 155/83
[2019-02-13] MEDS: traMADol 50 MG TAB PO PRN (18:16)
[2019-02-13] MEDS: PRAVASTATIN 20 MG TAB PO SCH (20:18)
[2019-02-13 22:00] VITALS: BP 123/60
[2019-02-14] MEDS: traMADol 50 MG TAB PO PRN ×2 (00:54→13:47)
[2019-02-14] MEDS: KETOROLAC 30 MG/ML VIAL (J1885) IV SCH ×4 (03:49→22:03)
[2019-02-14 06:00] VITALS: BP 122/70
[2019-02-14 06:10] LABS: HEMATOCRIT 36.1 % (36.0-47.0); HEMOGLOBIN 12.1 g/dl (12.0-15.5); MEAN CORPUSCULAR HEMOGLOBIN 29.9 pg (27.0-33.0); MEAN CORPUSCULAR HGB CONC 33.5 g/dl (32.0-36.5); MEAN CORPUSCULAR VOLUME 89.1 fl (80.0-96.0); PLATELET COUNT, AUTOMATED 231 10^3/uL (150-450); RED BLOOD COUNT 4.05 10^6/uL (4.00-5.40); WHITE BLOOD COUNT 8.6 10^3/uL (4.0-10.0)
[2019-02-14 06:46] LABS: ALT/SGPT 19 U/L (12-78); BILIRUBIN,TOTAL 0.3 MG/DL (0.2-1.0); BLOOD UREA NITROGEN 7 MG/DL (7-18); CALCIUM LEVEL 8.6 MG/DL (8.8-10.2); CARBON DIOXIDE LEVEL 28 MEQ/L (21-32); CHLORIDE LEVEL 105 MEQ/L (98-107); CREATININE FOR GFR 0.71 MG/DL (0.55-1.30); GLOMERULAR FILTRATION RATE > 60.0 (>45); GLUCOSE, FASTING 79 MG/DL (70-100); POTASSIUM SERUM 3.6 MEQ/L (3.5-5.1); SODIUM LEVEL 141 MEQ/L (136-145); TOTAL PROTEIN 5.9 GM/DL (6.4-8.2)
[2019-02-14] MEDS: NICOTINE 21MG/24HR 1 EA TRANSDERMAL TD SCH (08:58)
[2019-02-14] MEDS: ALVIMOPAN 12 MG CAPSULE (ENTEREG) PO SCH ×2 (08:59→22:01)
[2019-02-14] MEDS: SIMETHICONE 80 MG CHEW TAB PO SCH ×4 (08:59→22:02)
[2019-02-14] MEDS: PANTOPRAZOLE 40MG INJ (PROTONIX) (C9113) IV SCH (08:59)
[2019-02-14] MEDS: ESCITALOPRAM OXALATE 10 MG TAB (LEXAPRO) PO SCH (08:59)
[2019-02-14 10:00] VITALS: BP 129/66
[2019-02-14] MEDS ORDERED: TRAM50TA2 PO (13:08)
--- NOTE | 2019-02-14 13:20 | IPN ---
DATE: 02/14/2019 The patient overall seems to be doing quite well since yesterday. She has been afebrile. Her input and output have been good. She is making good urine output. She has had a couple bowel movements last night and a couple this morning and soft stools. She is not having any blood per rectum and no nausea or vomiting. White count has been fine. Her abdominal exam is soft, nontender, but she is mildly distended without guarding and without rebound. Garret-Moreno drain is draining some serosanguineous fluid. IMPRESSION AND PLAN: The patient seems to be making some good progress; however, she is a little sore and still having some difficulty mobilizing adequately at this point. Thus, I would recommend that she be discharged to home tomorrow, we will get everything else set up for her and then follow up in the office next week for staple removal.
[2019-02-14 14:00] VITALS: BP 127/65
[2019-02-14 22:00] VITALS: BP_SYST 126; BP_SYST 150; BP_DIAS 106; BP_DIAS 56
[2019-02-14] MEDS: PRAVASTATIN 20 MG TAB PO SCH (22:02)
[2019-02-15 02:00] VITALS: BP 126/64
[2019-02-15] MEDS: KETOROLAC 30 MG/ML VIAL (J1885) IV SCH ×3 (03:09→08:56)
[2019-02-15 06:00] VITALS: BP 126/65
[2019-02-15 06:20] LABS: HEMOGLOBIN 12.4 g/dl (12.0-15.5); MEAN CORPUSCULAR HEMOGLOBIN 30.6 pg (27.0-33.0); MEAN CORPUSCULAR HGB CONC 33.5 g/dl (32.0-36.5); MEAN CORPUSCULAR VOLUME 91.4 fl (80.0-96.0); PLATELET COUNT, AUTOMATED 249 10^3/uL (150-450); RED BLOOD COUNT 4.05 10^6/uL (4.00-5.40); WHITE BLOOD COUNT 7.6 10^3/uL (4.0-10.0)
[2019-02-15 06:42] LABS: ALBUMIN 2.7 GM/DL (3.2-5.2); ALT/SGPT 16 U/L (12-78); BILIRUBIN,TOTAL 0.2 MG/DL (0.2-1.0); BLOOD UREA NITROGEN 14 MG/DL (7-18); CALCIUM LEVEL 8.6 MG/DL (8.8-10.2); CARBON DIOXIDE LEVEL 29 MEQ/L (21-32); CHLORIDE LEVEL 106 MEQ/L (98-107); GLOMERULAR FILTRATION RATE > 60.0 (>45); GLUCOSE, FASTING 126 MG/DL (70-100); POTASSIUM SERUM 3.5 MEQ/L (3.5-5.1); SODIUM LEVEL 141 MEQ/L (136-145); TOTAL PROTEIN 5.8 GM/DL (6.4-8.2)
[2019-02-15] MEDS: PANTOPRAZOLE 40MG INJ (PROTONIX) (C9113) IV SCH ×2 (08:41→08:56)
[2019-02-15] MEDS: ALVIMOPAN 12 MG CAPSULE (ENTEREG) PO SCH ×2 (08:43→20:47)
[2019-02-15] MEDS: NICOTINE 21MG/24HR 1 EA TRANSDERMAL TD SCH (08:43)
[2019-02-15] MEDS: SIMETHICONE 80 MG CHEW TAB PO SCH ×4 (08:43→20:46)
[2019-02-15] MEDS: ESCITALOPRAM OXALATE 10 MG TAB (LEXAPRO) PO SCH (08:43)
[2019-02-15] MEDS: traMADol 50 MG TAB PO PRN ×3 (08:54→23:23)
[2019-02-15 10:00] VITALS: BP 131/67
--- NOTE | 2019-02-15 10:38 | IPNPDOC ---
Subjective General Date/Time Seen The patient was seen on 02/15/19 at 10:35. Subject Chief Complaint/History The patient is a 64-year-old female admitted with a reason for visit of Diverticulitis. Patient reports feeling mildly uncomfortable from abdominal distention which gets better when she passes flatus otherwise denies any nausea or vomiting. She still tolerating regular food patient told me she has had a couple small bowel movements but would feel better if she would have a large bowel movement. Current Medications Current Medications Current Medications Medications (Trade) Dose Ordered Sig/Thaddeus Route PRN Reason Start Time Stop Time Status Last Admin Dose Admin Albuterol/ Ipratropium (Duoneb (Ipr 0.5mg/Alb 2.5mg)) 3 ml Q2HP PRN NEB SOB/WHEEZING 02/11/19 10:15 Cancel Albuterol/ Ipratropium (Duoneb (Ipr 0.5mg/Alb 2.5mg)) 3 ml RQ6H NEB 02/11/19 14:00 02/12/19 16:51 DC 02/12/19 14:18 Alvimopan (Entereg) 12 mg BID PO 02/11/19 09:00 02/18/19 08:59 02/15/19 08:43 Celecoxib (CeleBREX) 200 mg BID PO 02/15/19 21:00 UNV Diphenhydramine HCl (Benadryl) 12.5 mg Q4HP PRN IV ITCHING 02/11/19 10:15 02/13/19 13:21 DC Escitalopram Oxalate (Lexapro) 20 mg DAILY PO 02/12/19 09:00 02/15/19 08:43 Fentanyl Citrate (Sublimaze) 25 mcg Q5MP PRN IV MODERATE PAIN (PS 4-7) 02/11/19 11:00 02/11/19 12:00 DC Ketorolac Tromethamine (ToRADol) 30 mg Q6H IV 02/11/19 15:00 02/16/19 14:59 02/15/19 03:09 Lactated Ringer's 1,000 ml @ 80 mls/hr [id number] IV 02/11/19 11:00 02/11/19 12:00 DC Levalbuterol HCl (Xopenex Neb) 0.63 mg Q4HP PRN INH SOB/WHEEZING 02/12/19 17:00 Levalbuterol HCl (Xopenex Neb) 0.63 mg Q6HP INH 02/12/19 18:00 02/12/19 21:16 Lidocaine HCl (LIDOCAINE 1% MDV 20ml) 0.1 ml ONCE PRN SQ DISCOMFORT BEFORE IV START 02/11/19 06:00 02/11/19 10:47 DC Morphine Sulfate (Morphine Sulfate In 0.9%Nacl Iv Bag) Concentration 1 mg/ml ASDIRECTED PRN IV SEE LABEL COMMENTS 02/11/19 10:15 02/13/19 13:21 DC 02/11/19 10:49 Morphine Sulfate (Morphine Sulfate Inj) 2 mg Q2HP PRN IV BREAKTHROUGH PAIN 02/13/19 13:30 Morphine Sulfate (Morphine Sulfate Inj) 2 mg Q5M PRN IV MODERATE/SEVERE PAIN (PS 5-10) 02/11/19 11:00 02/11/19 12:00 DC Nalbuphine HCl (Nubain) 2.5 mg Q6HP PRN IV PRURITIS 02/11/19 10:15 02/13/19 13:21 DC Naloxone HCl (Narcan) 0.1 mg Q5MP PRN IV SEE LABEL COMMENTS 02/11/19 10:15 02/13/19 13:21 DC Nicotine (Nicoderm Cq 21mg) 1 patch DAILY TD 02/11/19 16:00 02/15/19 08:43 Non-Formulary Medication (Epidural/STICK INSERTER [place]) USE THIS ENTRY TO VEND ... Q1M PRN XX SEE LABEL COMMENTS 02/11/19 10:15 02/13/19 13:21 DC Ondansetron HCl (ZOFRAN INJection) 4 mg Q4HP PRN IV NAUSEA OR VOMITING 02/11/19 11:00 02/11/19 12:00 DC Ondansetron HCl (ZOFRAN INJection) 4 mg Q6HP PRN IV NAUSEA 02/11/19 10:15 Pantoprazole Sodium (Protonix) 40 mg DAILY IV 02/11/19 09:00 02/14/19 08:59 Pravastatin Sodium (Pravachol) 40 mg QHS PO 02/11/19 21:00 02/14/19 22:02 Simethicone (Mylicon) 120 mg NOW PO 02/12/19 23:15 02/12/19 23:49 DC 02/12/19 23:36 Simethicone (Mylicon) 120 mg QID PO 02/13/19 09:00 02/15/19 08:43 Sodium Chloride 1,000 ml @ 15 mls/hr Q24H IV 02/11/19 10:15 02/11/19 10:29 DC Sodium Chloride 1,000 ml @ 25 mls/hr Q24H IV 02/12/19 23:15 02/13/19 13:21 DC Sodium Chloride 1,000 ml @ 80 mls/hr [id number] IV 02/12/19 05:30 02/12/19 23:15 DC 02/12/19 19:36 Sodium Chloride 1,000 ml @ 125 mls/hr Q8H IV 02/11/19 10:15 02/12/19 05:22 DC 02/11/19 22:30 Tramadol HCl (Ultram) 100 mg Q6HP PRN PO SEVERE PAIN (PS 8-10) 02/13/19 13:30 02/15/19 08:54 Allergies Coded Allergies: Sulfa (Sulfonamide Antibiotics) (Verified Allergy, Intermediate, hives, 11/27/18) amoxicillin (Verified Allergy, Mild, diarrhea, 11/27/18) clavulanic acid (Verified Allergy, Mild, diarrhea, 11/27/18) Objective Physical Examination Examination GENERAL APPEARANCE: Mild discomfort otherwise stable. SKIN: Warm and moist. HEENT: Normocephalic, atraumatic. Monarch palpebral conjunctiva, anicteric sclerae. Lips and mucosa appear moist. NECK: Supple, no thyromegaly. No obvious jugular venous distention. LUNGS: Clear to auscultation bilaterally. No wheezing appreciated. HEART: No chest wall abnormalities. Regular rate and rhythm with no murmurs appreciated. ABDOMEN: Abdomen is slightly rounded, soft, minimally distended most prominent in the upper abdomen, tympanitic to percussion. Postop dressings over incision sites are clean, dry and intact. She still has a DARREL drained with a bulb containing still a good amount of serosanguineous fluid. EXTREMITIES: Extremities have no deformities. No edema identified. Vital Signs Vital Signs Date Time Temp Pulse Resp B/P (MAP) Pulse Ox O2 Delivery O2 Flow Rate FiO2 02/15/19 09:45 15 02/15/19 06:00 96.2 63 126/65 (85) 95 02/11/19 12:50 2 I&Os I&O- Last 24 Hours up to 6 AM 02/15/19 06:00 Intake Total 1072 ml Output Total 1460 ml Balance -388 ml Laboratory Data Labs 24H Laboratory Tests 2 02/15/19 05:59: Nucleated Red Blood Cells % (auto) 0.0, Anion Gap 6L, Glomerular Filtration Rate > 60.0, Blood Urea Nitrogen 14#, Creatinine 0.80, Sodium Level 141, Potassium Level 3.5, Chloride Level 106, Carbon Dioxide Level 29, Calcium Level 8.6L, Aspartate Amino Transf (AST/SGOT) 10, Alanine Aminotransferase (ALT/SGPT) 16, Alkaline Phosphatase 87, Total Bilirubin 0.2, Total Protein 5.8L, Albumin 2.7L, Albumin/Globulin Ratio 0.87L CBC/BMP Laboratory Tests 02/15/19 05:59 Red Blood Count 4.05, Mean Corpuscular Volume 91.4, Mean Corpuscular Hemoglobin 30.6, Mean Corpuscular Hemoglobin Concent 33.5, Red Cell Distribution Width 13.5, Calcium Level 8.6 L, Aspartate Amino Transf (AST/SGOT) 10, Alanine Aminotransferase (ALT/SGPT) 16, Alkaline Phosphatase 87, Total Bilirubin 0.2, Total Protein 5.8 L, Albumin 2.7 L Impression Postop day 4 after laparoscopic sigmoid colectomy for recurrent diverticulitis Patient is stable. She still has some mild abdominal distention but she is having some flatus. I'll give her a close of milk of magnesia today. I encouraged her to ambulate to the hallways. I don't think she is ready to go home yet unfortunately. Once the distention results a think she will feel a lot better. Plan / VTE VTE Prophylaxis Ordered?: Yes ELIOT GRIFFIN MD Feb 15, 2019 10:38
[2019-02-15] MEDS ORDERED: MOM 30ML SUSPENSION UDC PO ONE (11:00)
[2019-02-15] MEDS: CelecoXIB (CeleBREX) 100 MG CAP PO SCH ×2 (11:11→20:47)
[2019-02-15] MEDS: PANTOPRAZOLE 40MG TAB (PROTONIX) PO SCH (11:11)
[2019-02-15 14:00] VITALS: BP 140/72
[2019-02-15 16:00] VITALS: BP 135/89
[2019-02-15] MEDS ORDERED: LACTULOSE 20 GM/30 ML SYRUP UD PO ONE (19:00)
[2019-02-15] MEDS: PRAVASTATIN 20 MG TAB PO SCH (20:47)
[2019-02-15 22:00] VITALS: BP 128/71
[2019-02-16 02:00] VITALS: BP 137/70
[2019-02-16 04:00] VITALS: BP 137/70
[2019-02-16 06:00] VITALS: BP 124/58
[2019-02-16 06:13] LABS: HEMATOCRIT 36.5 % (36.0-47.0); HEMOGLOBIN 12.3 g/dl (12.0-15.5); MEAN CORPUSCULAR HEMOGLOBIN 30.5 pg (27.0-33.0); MEAN CORPUSCULAR HGB CONC 33.7 g/dl (32.0-36.5); MEAN CORPUSCULAR VOLUME 90.6 fl (80.0-96.0); PLATELET COUNT, AUTOMATED 259 10^3/uL (150-450); RED BLOOD COUNT 4.03 10^6/uL (4.00-5.40); WHITE BLOOD COUNT 6.7 10^3/uL (4.0-10.0)
[2019-02-16 06:41] LABS: ALBUMIN 2.9 GM/DL (3.2-5.2); ALT/SGPT 21 U/L (12-78); BILIRUBIN,TOTAL 0.2 MG/DL (0.2-1.0); BLOOD UREA NITROGEN 14 MG/DL (7-18); CALCIUM LEVEL 8.7 MG/DL (8.8-10.2); CARBON DIOXIDE LEVEL 30 MEQ/L (21-32); CHLORIDE LEVEL 106 MEQ/L (98-107); CREATININE FOR GFR 0.81 MG/DL (0.55-1.30); GLOMERULAR FILTRATION RATE > 60.0 (>45); GLUCOSE, FASTING 99 MG/DL (70-100); POTASSIUM SERUM 4.2 MEQ/L (3.5-5.1); SODIUM LEVEL 140 MEQ/L (136-145)
[2019-02-16] MEDS: ALVIMOPAN 12 MG CAPSULE (ENTEREG) PO SCH (09:34)
[2019-02-16] MEDS: PANTOPRAZOLE 40MG TAB (PROTONIX) PO SCH (09:34)
[2019-02-16] MEDS: CelecoXIB (CeleBREX) 100 MG CAP PO SCH (09:34)
[2019-02-16] MEDS: SIMETHICONE 80 MG CHEW TAB PO SCH (09:34)
[2019-02-16] MEDS: ESCITALOPRAM OXALATE 10 MG TAB (LEXAPRO) PO SCH (09:34)
[2019-02-16] MEDS: NICOTINE 21MG/24HR 1 EA TRANSDERMAL TD SCH (09:34)
[2019-02-16 10:00] VITALS: BP 121/65
[2019-02-16] MEDS ORDERED: NICO21PAT TD (10:05)
--- NOTE | 2019-03-14 10:35 | RO ---
DATE OF PROCEDURE: 02/11/2019 PREOPERATIVE DIAGNOSIS: Sigmoid diverticulitis. POSTOPERATIVE DIAGNOSIS: Sigmoid diverticulitis. PROCEDURE: Laparoscopic sigmoid colectomy with coloproctostomy. SURGEON: Dr. Christiano Esteban. MOHS SURGEON/GENERAL DERMATOLOGIST: Dr. Sang Roman (provided retraction, exposure, and assistance with the coloproctostomy. ANESTHESIA: General endotracheal anesthesia ESTIMATED BLOOD LOSS: Minimal. FLUIDS: Crystalloid. DESCRIPTION OF PROCEDURE: The patient was brought to the operating room and was given general anesthesia. After adequate anesthesia and preoperative antibiotics were given, the patient was prepped and draped in the usual sterile fashion. A supraumbilical incision was made with skin knife. Blunt dissection was carried down to fascia. Fascia was entered with a Veress needle and insufflated to 15 mm of pressure. A dilating 10 mm trocar was placed under direct visualization and under direct visualization a 5 mm right-sided and 12 mm right lower quadrant trocars were placed and the left-sided 5 mm trocars were placed. There were a great deal of adhesions and inflammation in the pelvis and one specific area of the sigmoid colon that was tightly adherent to the pelvic sidewall that needed be taken down with harmonic scalpel and blunt dissection. Eventually after extensive dissection to just get down the adhesions and inflammatory changes and scarring up against the peritoneum in the pelvis, the sigmoid colon was then able to be mobilized first along the white line of Toldt laterally on the descending colon and sigmoid colon area down to the rectum and then on the medial aspect as well. Eventually once this was mobilized adequately, the mesentery of the colon was better visualized. Then creating a window around the sigmoid vessels and down posterior to the sigmoid vessels/rectal branch coming off of the sigmoid vessels going down into the rectal area/rectosigmoid area. The window was eventually created so that the vessels could be nicely appreciated. Inflammatory changes within the colon itself were appreciated and recreated quite a large volume of hard tissue that needed be worked around and then distally to and in the proximal rectum next to the rectosigmoid junction. The mesentery was cleared off the posterior aspect of the rectum. A CASTILLO echelon green load was used to transect the colon and a CASTILLO echelon vascular load was used to take the mesentery as well as the rectal branch of the sigmoid colon. Once this was adequately mobilized further and there was actually enough redundancy to the colon itself that the sigmoid colon reach down to the rectal stump. This area was copiously irrigated until clear and then once it was apparent that the colon did reach adequately, still at this point, I decided that I needed to mobilize the descending colon and the proximal sigmoid colon to allow it to lay a little bit better down into the pelvis and this was mobilized using some blunt dissection and with the harmonic scalpel as well. The end of the colon then and was grasped and a midline incision was created. The midline incision was created with skin knife. Electrocautery through skin and subcutaneous tissue and fascia. The colon was brought out and transected and a EEA stapler was placed through the stapled end prior to stapling off this proximal portion. This was dropped back into the abdomen after the mesentery in this area was transected using the harmonic scalpel and the midline was closed with running 0 Vicryl. The patient was placed back into the Trendelenburg position and an end-to-end stapled anastomosis was created with an EEA stapler. Next the pelvis was copiously irrigated. Air test revealed no air leak with air insufflation of the anastomosis and then the Garret-Moreno drain was left in the bed of the dissection. The right lower quadrant 12 mm trocar was closed with a [id number] 0 Vicryl and all trocars removed under direct visualization. [place] were used to close all incisions. A dry sterile dressing was applied. The patient was awakened, extubated and brought to the recovery room awake, alert, hemodynamically stable. Sponge and needle counts correct times two.
--- NOTE | 2019-03-14 10:52 | DSES ---
DATE OF ADMISSION: 02/11/2019 DATE OF DISCHARGE: 02/16/2019 PRINCIPAL DIAGNOSIS: History of recurrent diverticulitis. PROCEDURES PERFORMED: Laparoscopic sigmoid colectomy with coloproctostomy. ASSOCIATED DIAGNOSES: History of hysterectomy. Gallbladder surgery. Cholecystectomy. Hyperlipidemia. Depression. Anxiety. BRIEF HISTORY OF PRESENT ILLNESS: The patient is a 64-year-old female who has had multiple episodes of recurrent diverticulitis with an episode of spontaneous drainage via her vagina at one point for this diverticulitis, which was a probable diverticular abscess that spontaneously drained. She did not develop a colovaginal fistula after this fortunately, but in any case seemed to have persistent symptoms. HOSPITAL COURSE SUMMARY: The patient was admitted with the above diagnosis, underwent laparoscopic sigmoid colectomy and did well postoperatively and eventually started to make some slow but progressive improvement over time and she was tolerating a regular diet prior to discharge. She had good pain control with minimal p.o. pain meds and she had an incision which was healing nicely without any erythema, drainage or discharge. The medication at the time of discharge include her medications preoperatively which include some Tylenol, vitamin D, Lexapro, Protonix p.r.n., some MiraLax and Pravachol. She also was to continue on a Nicoderm patch as well as some tramadol for discomfort. She was to followup in the office next week for staple removal and in 2-3 weeks for reevaluation. She was encouraged to slowly increase her activity over time without heavy lifting, strenuous activity until follow-up visit.
== END 2019-02-16 12:19 | disposition home or self-care (01) | DRG 331 ==
LOC: M OR 05:58 → M MSPAV 13:14
PROVIDERS: ADMIT Surgery; ATTEND Surgery
PROC: 0DBN4ZZ Excision of Sigmoid Colon, Percutaneous Endoscopic Approach (ICD-10-PCS; principal; 2019-02-11 07:30)
DX: K57.32 Diverticulitis of large intestine without perforation or abscess without bleeding (principal); E78.5 Hyperlipidemia, unspecified; F32.9 Major depressive disorder, single episode, unspecified; F41.9 Anxiety disorder, unspecified; Z90.49 Acquired absence of other specified parts of digestive tract; Z90.710 Acquired absence of both cervix and uterus

== ENCOUNTER → 2019-03-18 | Outpatient (CLI) | payer OTHER ==
[~2019-03-18] MED LIST changes: +METR-265; +NEOM500T; +NICO21PAT TD; +SUPRSOL2; +TRAM50TA2 PO
[2019-03-18 11:58] LABS: BLOOD UREA NITROGEN 13 MG/DL (7-18); CREATININE FOR GFR 0.85 MG/DL (0.55-1.30); GLOMERULAR FILTRATION RATE > 60.0 (>45)
== END ==
LOC: M LAB 09:45
PROVIDERS: ATTEND Nurse Practitioner
DX: R10.9 Unspecified abdominal pain (principal)

== ENCOUNTER → 2019-03-26 | Outpatient (CLI) | payer OTHER ==
[~2019-03-26] MED LIST changes: +GASTROGRAFIN SOLUTION 30ML (Q9963) As Ordered ONE; +ISOVUE-370 76% 100ML VIAL (Q9967) As Ordered ONE
--- NOTE | 2019-03-26 13:37 | REP ---
CT of the abdomen pelvis without and with IV contrast and with bowel contrast: Comparison is 12/18/2018. There has been interval sigmoid colon resection. The previous sigmoid diverticulitis is no longer identified. There is no pericolonic abscess or inflammation. On the study today. No ascites. The colon at the anastomosis is unremarkable. The remainder of the colon. There is trace focal wall thickening in the mid descending colon. This is compatible with colitis in the appropriate clinical setting. The small bowel is unremarkable. The mesentery is unremarkable. The visualized lung matias demonstrate a 9 mm left lower lobe lung nodule measuring the nodule transversely. This is unchanged from 12/07/2015 and 12/18/2018. The visualized lung matias are otherwise unremarkable. There are several cysts in the hepatic left lobe, unchanged from 12/07/2015. The hepatic parenchyma is otherwise homogeneous. There are surgical clips in the gallbladder fossa. The pancreas, spleen, adrenals, kidneys and abdominal aorta are unremarkable. There is no periaortic adenopathy or mass. The mesentery is unremarkable. Pelvis: There is a hysterectomy. Vaginal cuff and adnexa are unremarkable. The bladder is unremarkable. There is no adenopathy or ascites. Impression: There has been interim sigmoid colon resection. The previous diverticulitis is no longer present. There are stable hepatic cysts. There is a left lower lobe lung nodule stable from 12/07/2015. The Otherwise, essentially negative CT of the abdomen and pelvis. Electronically Signed by Rob Dejesus MD 03/26/2019 01:09 P
== END ==
LOC: M RAD 08:31
PROVIDERS: ATTEND Nurse Practitioner
DX: R10.32 Left lower quadrant pain (principal); R14.0 Abdominal distension (gaseous); K76.89 Other specified diseases of liver; R91.1 Solitary pulmonary nodule
CPT/HCPCS: 74178; Q9963; Q9967

== ENCOUNTER → 2019-04-23 | Outpatient (CLI) | payer OTHER ==
[~2019-04-23] MED LIST changes: -GASTROGRAFIN SOLUTION 30ML (Q9963) As Ordered ONE; -ISOVUE-370 76% 100ML VIAL (Q9967) As Ordered ONE
--- NOTE | 2019-04-24 08:38 | REP ---
Clinical: Nontraumatic left knee pain. Technique: AP, lateral, bilateral oblique and sunrise views left knee . Findings: The osseous structures and joint spaces are intact and normal. There is no evidence for acute fracture or dislocation. No joint effusion is appreciated. Surrounding soft tissues are unremarkable. No subcutaneous emphysema or radiodense foreign body. Impression: Normal age-appropriate left knee examination. No acute fracture or dislocation. Electronically Signed by Carlos Venegas MD 04/24/2019 08:29 A
== END ==
LOC: M WUC 15:28
PROVIDERS: ATTEND Nurse Practitioner Family
DX: M25.562 Pain in left knee (principal)

== ENCOUNTER → 2019-08-08 | Outpatient (REF) | payer OTHER ==
[2019-08-08 14:15] LABS: ALT/SGPT 18 U/L (12-78); BILIRUBIN,TOTAL 0.3 MG/DL (0.2-1.0); BLOOD UREA NITROGEN 16 MG/DL (7-18); CALCIUM LEVEL 9.3 MG/DL (8.8-10.2); CARBON DIOXIDE LEVEL 29 MEQ/L (21-32); CHLORIDE LEVEL 106 MEQ/L (98-107); CHOLESTEROL LEVEL 230 MG/DL (<200); CHOLESTEROL RISK RATIO 5.609 (<5); GLOMERULAR FILTRATION RATE > 60.0 (>45); GLUCOSE, FASTING 93 MG/DL (70-100); HDL CHOLESTEROL 41 MG/DL (>40); LDL CHOLESTEROL 160 MG/DL (<100); NON-HDL-C 189 MG/DL; POTASSIUM SERUM 4.7 MEQ/L (3.5-5.1); SODIUM LEVEL 138 MEQ/L (136-145); TOTAL PROTEIN 7.4 GM/DL (6.4-8.2); TRIGLYCERIDES LEVEL 143 MG/DL (<150)
[2019-08-08 14:26] LABS: MALB URINE SIEMENS 12.3 MG/L; MAU/CREAT RATIO 7.5 MCG/MG (0.0-30.0)
[2019-08-08 14:34] LABS: HEMOGLOBIN A1c 5.9 %
== END ==
LOC: M SFHCPLAZ 11:20
PROVIDERS: ATTEND Internal Medicine
DX: R73.01 Impaired fasting glucose (principal); E78.00 Pure hypercholesterolemia, unspecified

== ENCOUNTER → 2019-08-14 | Outpatient (CLI) | payer OTHER ==
[~2019-08-14] MED LIST changes: +PRAV80TA2
--- NOTE | 2019-08-14 16:44 | REP ---
CT of the chest without IV contrast for lung nodules: Comparison is 03/25. There are the following lung nodules: On the comparison study on image 19. There was a 7 mm nodule in the apex of the left upper lobe. This nodule is no longer present on the current study. Image 22, left upper lobe, 3 mm, unchanged. Image 28, left upper lobe, 9 mm, and 9.4 mm previously. Image 35, right upper lobe, 4 mm, unchanged. Image 56, left lower lobe, 3 mm, unchanged. Image 69, left lower lobe, 14 mm, unchanged. No new lung nodules are identified. There are no infiltrates or pleural effusions. There is no mediastinal or axillary lymph node enlargement. The study is insensitive for hilar lymph node enlargement in the absence of IV contrast. Thoracic aorta is unremarkable. Cardiac size is normal. Upper abdomen: There is no adrenal mass. There are several hepatic cysts, unchanged. There are surgical clips in the gallbladder fossa. Visualized areas of the pancreas and spleen are unremarkable. Impression: Lung nodules as described. Electronically Signed by Rob Dejesus MD 08/14/2019 04:36 P
== END ==
LOC: M RAD 15:54
PROVIDERS: ATTEND Internal Medicine
DX: R91.8 Other nonspecific abnormal finding of lung field (principal); F17.200 Nicotine dependence, unspecified, uncomplicated

== ENCOUNTER 2019-08-20 17:00 | Emergency (ER) | payer OTHER ==
[~2019-08-20] VITALS: Ht 160 cm; Wt 84.0 kg
[~2019-08-20 17:00] MED LIST changes: -PRAV80TA2
[2019-08-20 18:16] LABS: APPEARANCE, URINE CLEAR (CLEAR); BACTERIA, URINE AUTO 1+ (NEGATIVE); BASO # 0.1 10^3/uL (0.0-0.2); BASO % 0.8 % (0.0-1.0); BILIRUBIN, URINE AUTO NEGATIVE (NEGATIVE); BLOOD, URINE BLOOD 1+ (NEGATIVE); COLOR, URINE STRAW (YELLOW); EOS # 0.3 10^3/uL (0.0-0.5); EOS % 3.2 % (0.0-3.0); GLUCOSE, URINE (UA) AUTO NEGATIVE (NEGATIVE); HEMATOCRIT 44.5 % (36.0-47.0); HEMOGLOBIN 14.8 g/dl (12.0-15.5); KETONE, URINE AUTO NEGATIVE (NEGATIVE); LEUKOCYTE ESTERASE, URINE AUTO NEGATIVE (NEGATIVE); LYMPH # 3.2 10^3/uL (1.5-5.0); LYMPH % 32.9 % (24.0-44.0); MEAN CORPUSCULAR HEMOGLOBIN 30.1 pg (27.0-33.0); MEAN CORPUSCULAR HGB CONC 33.3 g/dl (32.0-36.5); MEAN CORPUSCULAR VOLUME 90.4 fl (80.0-96.0); MONO # 0.6 10^3/uL (0.0-0.8); NEUTROPHILS # 5.5 10^3/uL (1.5-8.5); NEUTROPHILS % 56.7 % (36.0-66.0); NITRITE, URINE AUTO NEGATIVE (NEGATIVE); PLATELET COUNT, AUTOMATED 315 10^3/uL (150-450); PROTEIN, URINE AUTO NEGATIVE (NEGATIVE); RBC, URINE AUTO 1 /HPF (0-3); RED BLOOD COUNT 4.92 10^6/uL (4.00-5.40); SPECIFIC GRAVITY URINE AUTO 1.004 (1.002-1.035); SQUAMOUS EPITHELIAL CELL UR AU 0 /HPF (0-6); UROBILINOGEN, URINE AUTO 0.2 mg/dL (0.0-2.0); WBC, URINE AUTO 0 /HPF (0-3); WHITE BLOOD COUNT 9.8 10^3/uL (4.0-10.0)
[2019-08-20] MEDS ORDERED: PRAV80TA2 (18:20)
[2019-08-20 18:48] LABS: ALT/SGPT 22 U/L (12-78); BILIRUBIN,DIRECT < 0.1 MG/DL (0.0-0.2); BILIRUBIN,TOTAL 0.3 MG/DL (0.2-1.0); BLOOD UREA NITROGEN 12 MG/DL (7-18); CALCIUM LEVEL 9.2 MG/DL (8.8-10.2); CARBON DIOXIDE LEVEL 26 MEQ/L (21-32); CHLORIDE LEVEL 107 MEQ/L (98-107); CK-MB VALUE MASS < 1.0 NG/ML (<3.6); CPK CREATINE PHOSPHOKINASE 65 U/L (26-192); CREATININE FOR GFR 0.77 MG/DL (0.55-1.30); GLOMERULAR FILTRATION RATE > 60.0 (>45); GLUCOSE, FASTING 68 MG/DL (70-100); LIPASE 107 U/L (73-393); MB/CK RELATIVE INDEX 1.54 (< OR =4); POTASSIUM SERUM 3.9 MEQ/L (3.5-5.1); SODIUM LEVEL 142 MEQ/L (136-145); TROPONIN I < 0.02 NG/ML (< 0.10)
--- NOTE | 2019-08-20 19:34 | REP ---
Chest x-ray: Two views. History: Cough. Comparison chest x-ray: July 30, 2018. Findings: EKG electrodes are seen. The lungs are well inflated and clear. The pleural angles are sharp. Monitoring electrodes are seen. The heart is not enlarged. No change from comparison study July 30, 2018. Impression: No acute disease. Electronically Signed by Rogelio Olson MD 08/20/2019 07:25 P
[2019-08-20] MEDS ORDERED: ISOVUE-370 76% 100ML VIAL (Q9967) As Ordered ONE (20:10)
--- NOTE | 2019-08-20 20:49 | REPVR ---
PROCEDURE INFORMATION: Exam: CT Abdomen And Pelvis With Contrast Exam date and time: 08/20/2019 8:07 PM Age: 64 years old Clinical indication: Abdominal pain; Localized; Right lower quadrant (rlq); Additional info: Rlq pain TECHNIQUE: Imaging protocol: Computed tomography of the abdomen and pelvis with intravenous contrast. Radiation optimization: All CT scans at this facility use at least one of these dose optimization techniques: automated exposure control; mA and/or kV adjustment per patient size (includes targeted exams where dose is matched to clinical indication); or iterative reconstruction. Contrast material: ISOVUE 370; Contrast volume: 100 ml; Contrast route: IV; COMPARISON: CT ABD PELVIS WITH CONTRAST 12/18/2018 2:19 PM FINDINGS: Lungs: Partially calcified soft tissue nodule in the left lower lobe measures 1.4 cm stable in size comparison to 12/18/2018. Considering the finding is stable for 8 months repeat study could be obtained in 9 to 12 months to document stability. Liver: There is a diffuse decrease in hepatic parenchymal density, consistent with steatosis. There are cysts in the liver measuring up to 1.8 x 3.2 cm it in the left lobe. No complex features demonstrated. Gallbladder and bile ducts: There has been a cholecystectomy. Pancreas: Normal. No ductal dilation. Spleen: Normal. No splenomegaly. Adrenals: There is bilateral adrenal hyperplasia. Kidneys and ureters: Subcentimeter angiomyolipoma upper pole right kidney stable in appearance. Stomach and bowel: Sutures demonstrated in the distal sigmoid with a normal appearance of the anastomosis. Appendix: The appendix is within normal limits. There is no appendiceal enlargement, periappendiceal inflammatory changes or abscess. Intraperitoneal space: Unremarkable. No free air. No significant fluid collection. Vasculature: The aorta demonstrates mild atherosclerotic calcification. Lymph nodes: Unremarkable. No enlarged lymph nodes. Bladder: Unremarkable as visualized. Reproductive: There has been a hysterectomy. Bones/joints: Mild central spinal stenosis L3-L4 and [id number] central spinal stenosis L4-L5. Soft tissues: Mid ventral abdominal wall hernia. IMPRESSION: 1. There is a diffuse decrease in hepatic parenchymal density, consistent with steatosis. 2. Multiple simple hepatic cysts. 3. There has been a cholecystectomy. 4. There is bilateral adrenal hyperplasia. 5. There has been a hysterectomy. 6. The appendix is within normal limits. There is no appendiceal enlargement, periappendiceal inflammatory changes or abscess. 7. No acute findings. Electronically signed by: Denver Seaman On 08/20/2019 20:48:55 PM
--- NOTE | 2019-08-20 20:54 | REPVR ---
PROCEDURE INFORMATION: Exam: CT Angiography Chest With Contrast Exam date and time: 08/20/2019 8:07 PM Age: 64 years old Clinical indication: Shortness of breath; Additional info: SOB, palpitations TECHNIQUE: Imaging protocol: Computed tomographic angiography of the chest with intravenous contrast. 3D rendering: MIP and/or 3D reconstructed images were created by the technologist. Radiation optimization: All CT scans at this facility use at least one of these dose optimization techniques: automated exposure control; mA and/or kV adjustment per patient size (includes targeted exams where dose is matched to clinical indication); or iterative reconstruction. Contrast material: ISOVUE 370; Contrast volume: 100 ml; Contrast route: IV; COMPARISON: CT Chest without contrast 08/14/2019 4:17 PM FINDINGS: Pulmonary arteries: There is enlargement of the central pulmonary arteries, findings which can be associated with pulmonary arterial hypertension which should be correlated clinically. There are no pulmonary emboli. Aorta: The aorta demonstrates mild atherosclerotic calcification. There is no aortic dissection or aneurysm. Lungs: Stable appearance of 2 smooth bordered cyst soft tissue nodules in the left upper lobe measuring 9.5 mm maximally and in the left lower lobe measuring 12.7 cm maximally. Pleural space: Unremarkable. No pneumothorax. No pleural effusion. Heart: Unremarkable. No cardiomegaly. No pericardial effusion. Liver: Redemonstration of numerous hepatic cysts. Please refer to accompanying abdominal CT report. Lymph nodes: Unremarkable. No enlarged lymph nodes. Bones/joints: Unremarkable. No acute fracture. Soft tissues: Unremarkable. IMPRESSION: 1. Stable appearance of 2 smooth bordered cyst soft tissue nodules in the left upper lobe measuring 9.5 mm maximally and in the left lower lobe measuring 12.7 cm maximally. For patients at low risk (minimal or absent history of smoking and of other known risk factors), recommend CT at 3-6 months, then consider CT at 18-24 months. For patients at high risk (history of smoking or of other known risk factors), recommend CT at 3-6 months, then CT at 18-24 months. (rom Bailey al., Fleischner Society, 2017) 2. There is no aortic dissection or aneurysm. 3. There is enlargement of the central pulmonary arteries, findings which can be associated with pulmonary arterial hypertension which should be correlated clinically. 4. There are no pulmonary emboli. Electronically signed by: Denver Seaman On 08/20/2019 20:53:55 PM
[2019-08-20 21:01] VITALS: BP 190/79
--- NOTE | 2019-08-21 07:05 | ECGEPIP ---
[facility] - ED Test Date: 2019-08-20 Pat Name: IDRIS CHACON Department: Room: - Gender: Female [employer]: radhames : 1955 Requested By: Jhonny Ray Order Number: [id number] Reading MD: Jhonny Carlos Measurements Intervals [place] Rate: 72 P: 65 ME: 148 QRS: 68 QRSD: 76 T: 51 QT: 402 QTc: 442 Interpretive Statements SINUS RHYTHM POSSIBLE INCOMPLETE RIGHT BUNDLE BRANCH BLOCK NO PRIORS FOR COMPARISON Electronically Signed on 08-21-2019 7:04:50 EST by Jhonny Carlos
--- NOTE | 2019-08-21 10:48 | ED PDOC ---
Post-Departure Follow-Up dr linton faxed formal report of cta chest for fu Fredrick Lewis MD Aug 21, 2019 10:48
== END 2019-08-20 21:30 | disposition home or self-care (01) ==
LOC: M ED 17:00
DX: R00.2 Palpitations (principal); E78.00 Pure hypercholesterolemia, unspecified; K21.9 Gastro-esophageal reflux disease without esophagitis; G43.909 Migraine, unspecified, not intractable, without status migrainosus; K76.89 Other specified diseases of liver; E27.8 Other specified disorders of adrenal gland; I28.8 Other diseases of pulmonary vessels; R91.8 Other nonspecific abnormal finding of lung field; Z90.49 Acquired absence of other specified parts of digestive tract; F17.200 Nicotine dependence, unspecified, uncomplicated; Z79.899 Other long term (current) drug therapy; Z88.2 Allergy status to sulfonamides; Z88.0 Allergy status to penicillin
CPT/HCPCS: 71046; 71275; 74177; 80048; 80076; 81001; 82550; 82553; 83690; 84484; 85025; 93005; 99284; Q9967

== ENCOUNTER → 2019-12-10 | Outpatient (CLI) | payer OTHER ==
[~2019-12-10] MED LIST changes: +PRAV80TA2
--- NOTE | 2019-12-12 11:04 | REP ---
Left lower extremity Duplex Doppler venous ultrasound: Real time compression and duplex Doppler interrogation of the left lower extremity deep venous system is performed. The left common femoral, superficial femoral and popliteal veins are fully compressible with transducer pressure and demonstrate normal spontaneous and phasic flow, without evidence of deep venous thrombosis. Impression: No evidence of deep venous thrombosis of the left lower extremity femoral popliteal venous system.
== END ==
LOC: M WHC 14:12
PROVIDERS: ATTEND Internal Medicine
DX: M79.89 Other specified soft tissue disorders (principal)

== ENCOUNTER → 2020-02-24 | Outpatient (CLI) | payer OTHER, MEDICARE | LOC: M LABSMTC 13:09 | PROVIDERS: ATTEND Family Medicine | DX: Z11.59 Encounter for screening for other viral diseases (principal) | CPT/HCPCS: C9803; U0003 ==

== ENCOUNTER → 2020-08-02 | Outpatient (CLI) | payer OTHER, MEDICARE | LOC: M LABSMTC 11:45 | PROVIDERS: ATTEND Family Medicine | DX: Z20.822 Contact with and (suspected) exposure to COVID-19 (principal) | CPT/HCPCS: C9803; U0003 ==

== ENCOUNTER → 2020-08-09 | Outpatient (CLI) | payer OTHER, MEDICARE | LOC: M LABSMTC 11:50 | PROVIDERS: ATTEND Family Medicine | DX: Z11.52 Encounter for screening for COVID-19 (principal) | CPT/HCPCS: C9803; U0003 ==

== ENCOUNTER → 2020-09-03 | Outpatient (CLI) | payer OTHER, MEDICARE ==
--- NOTE | 2020-09-04 08:14 | REP ---
INDICATION: LUNG SCREENING. COMPARISON: Comparison chest CT studies are reviewed, the most recent which is from August 20, 2019 and the most remote is dated November 16, 2016.. TECHNIQUE: Low-dose screening exam. Helical scanning is acquired and 3 mm axial images are re-formatted at lung only windows. FINDINGS: Multiple noncalcified bilateral pulmonary nodules are again noted. The largest of these is in the left lower lobe which currently measures 15 x 11 mm. On the oldest study November 16, 2016, these dimensions were 11 x 8 mm. This nodule is very slightly larger. The next largest nodule is an 9 mm nodule in the left upper lobe projecting on today's study image number 23 of 95. In 2017 this measured 8 mm. There are numerous other pulmonary nodules some of which appear very slightly more prominent today than on the earlier studies. there was a 6 mm nodule in the left lung apex on the original CT study which is no longer visible. There is no pulmonary nodule which is definitely new today. There is no evidence of pleural effusion. Some vascular calcification is observed. Surgical clips are noted in the gallbladder fossa. IMPRESSION: There are numerous noncalcified pulmonary nodules measuring up to 15 mm in greatest diameter. Several of these appears slightly more prominent than on the more remote prior studies. One of the originally identified nodules in the left lung apex is no longer apparent. No significant change from the most recent prior study of August 20, 2019. Nonspecific findings. <Electronically signed by Darrius Olson > 09/04/20 [id number]
== END ==
LOC: M RAD 13:43
PROVIDERS: ATTEND Internal Medicine
DX: F17.200 Nicotine dependence, unspecified, uncomplicated (principal)

== ENCOUNTER → 2020-09-30 | Outpatient (CLI) | payer OTHER, MEDICARE ==
--- NOTE | 2020-09-30 12:59 | DEXAMM ---
INDICATION: M81.0 AGE RELATED OSTEOPOROSIS. COMPARISON: 11/05/2015 as well as other prior exams. TECHNIQUE: Bone density was measured using dual-energy x-ray absorptiometry (DEXA). FINDINGS: AP SPINE L1-L4 BMD 0.893 g/cm2 Young Adult T-Score -2.4 Age Matched Z-Score -0.8. LT FEMUR, TOTAL BMD 0.889 g/cm2 Young Adult T-Score -0.9 Age Matched Z-Score 0.3. LT NECK BMD 0.806 g/cm2 Young Adult T-Score -1.7 Age Matched Z-Score -0.2. RT FEMUR, TOTAL BMD 0.946 g/cm2 Young Adult T-Score -0.5 Age Matched Z-Score 0.7. RT NECK BMD 0.777 g/cm2 Young Adult T-Score -1.9 Age Matched Z-Score -0.4. IMPRESSION: There is low bone density of the spine. There is low bone density of the left hip. There is low bone density of the right hip. The density of the spine has decreased 12.4% since the initial exam on 02/02/2000. The density of the spine decreased 8.2% since most recent exam on 11/05/2015. The density of the left hip has decreased 9.4% since initial exam on 02/02/2000. The density of the left hip has increased 0.6% since most recent exam on 11/05/2015. The density of the right hip has decreased 4.3% since the initial exam on 11/05/2015. FOLLOW-UP: Recommendation for the next bone density exam: 2 years. <Electronically signed by Rob Yusuf > 09/30/20 [id number]
--- NOTE | 2020-09-30 14:12 | REP ---
INDICATION: N63.20 LT BREAST LUMP. The patient reports a "raise vein "sensation in her left breast upper outer quadrant region times several weeks. COMPARISON: Mammography is reviewed from September 25, 2018, November 05, 2015, and July 12, 2010. TECHNIQUE: Bilateral CC and MLO) view(s) were taken. A skin marker is affixed to the skin at the site of the palpable lump in the left breast. Magnified focal spot-compression diagnostic images of the left breast were obtained in the CC, mL, and mediolateral projection. 3D tomography is performed. Targeted left breast sonography is carried out. FINDINGS: Scattered fibroglandular elements are seen bilaterally. No suspicious or dominant density is seen. No microcalcification or architectural distortion is seen. No worrisome skin change is appreciated. 3-D tomosynthesis shows no additional finding. Fibroglandular markings are unchanged in the upper outer quadrant of the left breast in the area where the patient has a palpable finding. No new density or mass lesion is seen. No spiculation or microcalcification is observed. The Volpara volumetric breast density pattern is B. Targeted left breast sonography: Left breast upper outer quadrant is scanned from 12:00 to 3:00. The palpable finding is at 2 o'clock. Slightly heterogeneous fibroglandular texture is seen. No cyst or mass is observed. No acoustic shadowing or architectural distortion is seen.. IMPRESSION: BIRADS/ACR category 1 negative mammographic and left breast sonographic findings. No suspicious abnormality.. This patient's Tyrer-Cuzick lifetime breast cancer risk assessment score is 6.8%. This mammogram was interpreted with the aid of an FDA-approved computer-aided detection system. The patient states she had a clinical breast exam in over a year ago. The patient letter being requested is M2. RECOMMENDATION: Repeat screening mammography recommended 1 year (for women over 40). Clinical follow-up is advised regarding the patient symptom. <Electronically signed by Darrius Olson > 09/30/20 [id number]
== END ==
LOC: M WHC 11:35
PROVIDERS: ATTEND Internal Medicine
DX: N63.20 Unspecified lump in the left breast, unspecified quadrant (principal); M81.0 Age-related osteoporosis without current pathological fracture; M85.851 Other specified disorders of bone density and structure, right thigh; M85.852 Other specified disorders of bone density and structure, left thigh; M85.88 Other specified disorders of bone density and structure, other site

== ENCOUNTER → 2021-03-15 | Outpatient (CLI) | payer MEDICARE, OTHER ==
[2021-03-15 13:31] LABS: BASO # 0.1 10^3/uL (0.0-0.2); BASO % 0.7 % (0.0-1.0); EOS # 0.4 10^3/uL (0.0-0.5); EOS % 4.5 % (0.0-3.0); HEMATOCRIT 45.2 % (36.0-47.0); HEMOGLOBIN 14.5 g/dl (12.0-15.5); LYMPH % 31.9 % (24.0-44.0); MEAN CORPUSCULAR HEMOGLOBIN 29.1 pg (27.0-33.0); MEAN CORPUSCULAR HGB CONC 32.1 g/dl (32.0-36.5); MEAN CORPUSCULAR VOLUME 90.6 fl (80.0-96.0); MONO # 0.8 10^3/uL (0.0-0.8); MONO % 8.4 % (2.0-8.0); PLATELET COUNT, AUTOMATED 315 10^3/uL (150-450); RED BLOOD COUNT 4.99 10^6/uL (4.00-5.40); WHITE BLOOD COUNT 9.4 10^3/uL (4.0-10.0)
[2021-03-15 13:49] LABS: HEMOGLOBIN A1c 5.7 %
[2021-03-15 14:07] LABS: ALBUMIN 3.6 GM/DL (3.2-5.2); ALT/SGPT 21 U/L (12-78); BILIRUBIN,TOTAL 0.2 MG/DL (0.2-1.0); BLOOD UREA NITROGEN 19 MG/DL (7-18); CALCIUM LEVEL 9.4 MG/DL (8.8-10.2); CARBON DIOXIDE LEVEL 27 MEQ/L (21-32); CHLORIDE LEVEL 108 MEQ/L (98-107); CHOLESTEROL LEVEL 227 MG/DL (<200); CHOLESTEROL RISK RATIO 6.305 (<5); CREATININE FOR GFR 0.83 MG/DL (0.55-1.30); GLOMERULAR FILTRATION RATE > 60.0 (>45); GLUCOSE, FASTING 98 MG/DL (70-100); HDL CHOLESTEROL 36 MG/DL (>40); LDL CHOLESTEROL 167 MG/DL (<100); NON-HDL-C 191 MG/DL; POTASSIUM SERUM 4.9 MEQ/L (3.5-5.1); SODIUM LEVEL 139 MEQ/L (136-145); TOTAL 25(OH) VITAMIN D 56.6 NG/ML (30.0-100.0); TOTAL PROTEIN 6.6 GM/DL (6.4-8.2); TRIGLYCERIDES LEVEL 122 MG/DL (<150)
[2021-03-15 14:47] LABS: HEPATITIS C VIRUS ABY INDEX 0.3 INDEX (<0.8)
== END ==
LOC: M PLALAB 10:25
PROVIDERS: ATTEND Internal Medicine
DX: R73.01 Impaired fasting glucose (principal); E78.00 Pure hypercholesterolemia, unspecified; K21.9 Gastro-esophageal reflux disease without esophagitis; F34.1 Dysthymic disorder; M81.0 Age-related osteoporosis without current pathological fracture; E55.9 Vitamin D deficiency, unspecified; Z11.59 Encounter for screening for other viral diseases

== ENCOUNTER → 2021-05-18 | Outpatient (CLI) | payer MEDICARE, OTHER ==
[~2021-05-18] MED LIST changes: +BARIUM SULFATE 700 MG TABLET (E-Z-DISK) As Ordered ONE; +D31000TA2 PO; +E-Z-PAQUE 96% w/w SUSP 176GM BTL As Ordered ONE; +PRAV40TA2 PO; +VARIBAR NECTAR 40% w/v 240ML SUSP BTL As Ordered ONE; +VARIBAR PUDDING 40% w/v 230ML TUBE As Ordered ONE
== END ==
LOC: M RAD 10:48
PROVIDERS: ATTEND Surgery
DX: R13.10 Dysphagia, unspecified (principal)

== ENCOUNTER → 2021-05-25 | Outpatient (CLI) | payer MEDICARE, OTHER ==
[~2021-05-25] MED LIST changes: -BARIUM SULFATE 700 MG TABLET (E-Z-DISK) As Ordered ONE; -E-Z-PAQUE 96% w/w SUSP 176GM BTL As Ordered ONE; -VARIBAR NECTAR 40% w/v 240ML SUSP BTL As Ordered ONE; -VARIBAR PUDDING 40% w/v 230ML TUBE As Ordered ONE
== END ==
LOC: M LABSMTC 12:02
PROVIDERS: ATTEND Anesthesiology
DX: Z01.812 Encounter for preprocedural laboratory examination (principal); Z20.822 Contact with and (suspected) exposure to COVID-19

== ENCOUNTER 2021-05-30 10:36 | Day surgery (SDC) | payer MEDICARE, OTHER ==
[~2021-05-30] VITALS: Ht 160 cm; Wt 84.3 kg
[~2021-05-30 10:36] MED LIST changes: +LIDOCAINE 2% 100MG/5ML SDV (FOR ANES.) As Ordered ONE; +NS 1,000 ML IV ONE; +propofoL 200 MG/20 ML VIAL As Ordered ONE
[2021-05-30] MEDS ORDERED: fentaNYL 100 MCG/2 ML INJECTION As Ordered ONE (11:39)
[2021-05-30 12:44] VITALS: BP 135/69
== END 2021-05-30 12:45 | disposition home or self-care (01) ==
LOC: M OPP 10:36
PROVIDERS: ATTEND Surgery
DX: K59.00 Constipation, unspecified (principal); D12.6 Benign neoplasm of colon, unspecified; K22.4 Dyskinesia of esophagus; K29.70 Gastritis, unspecified, without bleeding; K31.89 Other diseases of stomach and duodenum; R13.10 Dysphagia, unspecified; Z79.899 Other long term (current) drug therapy; Z88.2 Allergy status to sulfonamides; Z88.1 Allergy status to other antibiotic agents; F17.210 Nicotine dependence, cigarettes, uncomplicated
CPT/HCPCS: 43239; 45385; 88305; J3010

== ENCOUNTER → 2021-10-12 | Outpatient (CLI) | payer MEDICARE, OTHER ==
[~2021-10-12] MED LIST changes: -D31000TA2 PO; -LIDOCAINE 2% 100MG/5ML SDV (FOR ANES.) As Ordered ONE; -NS 1,000 ML IV ONE; +VITA100093 PO; -propofoL 200 MG/20 ML VIAL As Ordered ONE
[2021-10-12 17:54] LABS: ALBUMIN 3.7 GM/DL (3.2-5.2); ALT/SGPT 21 U/L (12-78); BILIRUBIN,TOTAL 0.3 MG/DL (0.2-1.0); BLOOD UREA NITROGEN 14 MG/DL (7-18); CALCIUM LEVEL 9.3 MG/DL (8.8-10.2); CARBON DIOXIDE LEVEL 30 MEQ/L (21-32); CHLORIDE LEVEL 105 MEQ/L (98-107); CHOLESTEROL LEVEL 198 MG/DL (<200); CHOLESTEROL RISK RATIO 5.076 (<5); CREATININE FOR GFR 0.68 MG/DL (0.55-1.30); GLOMERULAR FILTRATION RATE > 60.0 (>45); GLUCOSE, FASTING 70 MG/DL (70-100); HDL CHOLESTEROL 39 MG/DL (>40); LDL CHOLESTEROL 128 MG/DL (<100); NON-HDL-C 159 MG/DL; POTASSIUM SERUM 4.8 MEQ/L (3.5-5.1); SODIUM LEVEL 139 MEQ/L (136-145); TOTAL PROTEIN 6.6 GM/DL (6.4-8.2); TRIGLYCERIDES LEVEL 157 MG/DL (<150)
[2021-10-12 17:57] LABS: TOTAL 25(OH) VITAMIN D 49.8 NG/ML (30.0-100.0)
== END ==
LOC: M PLALAB 15:46
PROVIDERS: ATTEND Internal Medicine
DX: E78.00 Pure hypercholesterolemia, unspecified (principal); E55.9 Vitamin D deficiency, unspecified

== ENCOUNTER → 2021-10-12 | Outpatient (REF) | payer MEDICARE, OTHER | LOC: M SFHCPLAZ 15:16 | PROVIDERS: ATTEND Internal Medicine | DX: E78.00 Pure hypercholesterolemia, unspecified (principal); E55.9 Vitamin D deficiency, unspecified; Z63.9 Problem related to primary support group, unspecified ==

== ENCOUNTER → 2021-10-26 | Outpatient (CLI) | payer MEDICARE, OTHER | LOC: M RAD 10:53 | PROVIDERS: ATTEND Internal Medicine | DX: Z87.891 Personal history of nicotine dependence (principal) ==

== ENCOUNTER 2022-03-16 10:31 | Emergency (ER) | payer MEDICARE, OTHER ==
[~2022-03-16] VITALS: Ht 160 cm; Wt 87.5 kg
[2022-03-16 11:46] LABS: BASO # 0.1 10^3/uL (0.0-0.2); BASO % 1.1 % (0.0-1.0); EOS # 0.3 10^3/uL (0.0-0.5); EOS % 3.4 % (0.0-3.0); HEMATOCRIT 47.2 % (36.0-47.0); HEMOGLOBIN 15.5 g/dl (12.0-15.5); LYMPH # 2.7 10^3/uL (1.5-5.0); LYMPH % 31.5 % (24.0-44.0); MEAN CORPUSCULAR HEMOGLOBIN 29.4 pg (27.0-33.0); MEAN CORPUSCULAR HGB CONC 32.8 g/dl (32.0-36.5); MEAN CORPUSCULAR VOLUME 89.6 fl (80.0-96.0); MONO # 0.6 10^3/uL (0.0-0.8); MONO % 7.3 % (2.0-8.0); NEUTROPHILS # 4.8 10^3/uL (1.5-8.5); NEUTROPHILS % 56.3 % (36.0-66.0); PLATELET COUNT, AUTOMATED 280 10^3/uL (150-450); RED BLOOD COUNT 5.27 10^6/uL (4.00-5.40); WHITE BLOOD COUNT 8.6 10^3/uL (4.0-10.0)
[2022-03-16 12:05] LABS: INR 0.87; PROTHROMBIN TIME 12.2 SECONDS (12.7-14.5)
[2022-03-16 12:06] LABS: PARTIAL THROMBOPLASTIN TIME 29.1 SECONDS (25.9-37.0)
[2022-03-16 12:21] LABS: CK-MB VALUE MASS < 1.0 NG/ML (<3.6); CPK CREATINE PHOSPHOKINASE 53 U/L (26-192); MB/CK RELATIVE INDEX 1.89 (< OR =4)
[2022-03-16 12:32] LABS: ALBUMIN 3.9 GM/DL (3.2-5.2); ALT/SGPT 23 U/L (12-78); BILIRUBIN,DIRECT < 0.1 MG/DL (0.0-0.2); BILIRUBIN,TOTAL 0.4 MG/DL (0.2-1.0); BLOOD UREA NITROGEN 16 MG/DL (7-18); CALCIUM LEVEL 9.6 MG/DL (8.8-10.2); CARBON DIOXIDE LEVEL 26 MEQ/L (21-32); CHLORIDE LEVEL 104 MEQ/L (98-107); CREATININE FOR GFR 0.72 MG/DL (0.55-1.30); FREE T4 0.99 NG/DL (0.76-1.46); GLOMERULAR FILTRATION RATE > 60.0 (>45); GLUCOSE, FASTING 81 MG/DL (70-100); LIPASE 118 U/L (73-393); NT-PRO BNP 187 PG/ML (<125); POTASSIUM SERUM 4.6 MEQ/L (3.5-5.1); SODIUM LEVEL 136 MEQ/L (136-145); TOTAL PROTEIN 7.4 GM/DL (6.4-8.2)
[2022-03-16] MEDS ORDERED: diazePAM 2 MG TAB PO ONE (18:35)
[2022-03-16] MEDS ORDERED: MECLIZINE 25 MG TABLET PO ONE (18:35)
[2022-03-16] MEDS ORDERED: MECL-86 PO (19:00)
[2022-03-16 19:56] VITALS: BP 170/79
== END 2022-03-16 20:00 | disposition home or self-care (01) ==
LOC: M ED 10:31
DX: R42 Dizziness and giddiness (principal); I45.19 Other right bundle-branch block; I10 Essential (primary) hypertension; F17.200 Nicotine dependence, unspecified, uncomplicated; Z79.899 Other long term (current) drug therapy; Z88.2 Allergy status to sulfonamides; Z88.0 Allergy status to penicillin

== ENCOUNTER → 2022-04-06 | Outpatient (CLI) | payer MEDICARE, OTHER ==
[~2022-04-06] MED LIST changes: +MECL-86 PO
[2022-04-06 14:12] LABS: HEMATOCRIT 44.7 % (36.0-47.0); HEMOGLOBIN 14.7 g/dl (12.0-15.5); MEAN CORPUSCULAR HEMOGLOBIN 29.8 pg (27.0-33.0); MEAN CORPUSCULAR HGB CONC 32.9 g/dl (32.0-36.5); MEAN CORPUSCULAR VOLUME 90.7 fl (80.0-96.0); PLATELET COUNT, AUTOMATED 323 10^3/uL (150-450); RED BLOOD COUNT 4.93 10^6/uL (4.00-5.40); WHITE BLOOD COUNT 8.5 10^3/uL (4.0-10.0)
[2022-04-06 15:15] LABS: CREATININE, URINE 79.6 MG/DL; MALB URINE SIEMENS 17.6 MG/L; MAU/CREAT RATIO 22.1 MCG/MG (0.0-30.0)
[2022-04-06 15:37] LABS: ALBUMIN 3.8 GM/DL (3.2-5.2); ALT/SGPT 19 U/L (12-78); BILIRUBIN,TOTAL 0.2 MG/DL (0.2-1.0); BLOOD UREA NITROGEN 11 MG/DL (7-18); C REACTIVE PROTEIN QUANTITATIV 1.14 MG/DL (0.00-0.30); CALCIUM LEVEL 9.3 MG/DL (8.8-10.2); CARBON DIOXIDE LEVEL 28 MEQ/L (21-32); CHLORIDE LEVEL 106 MEQ/L (98-107); CHOLESTEROL LEVEL 208 MG/DL (<200); CHOLESTEROL RISK RATIO 6.303 (<5); CREATININE FOR GFR 0.74 MG/DL (0.55-1.30); FREE T4 1.07 NG/DL (0.76-1.46); GLOMERULAR FILTRATION RATE > 60.0 (>45); GLUCOSE, FASTING 93 MG/DL (70-100); HDL CHOLESTEROL 33 MG/DL (>40); LDL CHOLESTEROL 151 MG/DL (<100); NON-HDL-C 175 MG/DL; POTASSIUM SERUM 4.8 MEQ/L (3.5-5.1); SODIUM LEVEL 140 MEQ/L (136-145); THYROID STIMULATING HORMONE 0.705 uIU/ML (0.358-3.740); TOTAL PROTEIN 7.2 GM/DL (6.4-8.2); TRIGLYCERIDES LEVEL 120 MG/DL (<150)
[2022-04-06 15:41] LABS: HEMOGLOBIN A1c 5.9 %
[2022-04-06 16:11] LABS: TOTAL 25(OH) VITAMIN D 60.5 NG/ML (30.0-100.0); VITAMIN B12 LEVEL 343 PG/ML (247-911)
== END ==
LOC: M PLALAB 11:59
PROVIDERS: ATTEND Internal Medicine Hematology
DX: E78.00 Pure hypercholesterolemia, unspecified (principal); Z79.899 Other long term (current) drug therapy

== ENCOUNTER → 2022-11-15 | Outpatient (CLI) | payer MEDICARE, OTHER | LOC: M RAD 10:48 | PROVIDERS: ATTEND Internal Medicine Hematology | DX: Z12.2 Encounter for screening for malignant neoplasm of respiratory organs (principal); F17.210 Nicotine dependence, cigarettes, uncomplicated; R91.8 Other nonspecific abnormal finding of lung field ==

== ENCOUNTER → 2023-03-08 | Outpatient (CLI) | payer MEDICARE, OTHER | LOC: M WHC 11:43 | PROVIDERS: ATTEND Physician Assistant | DX: I65.23 Occlusion and stenosis of bilateral carotid arteries (principal) ==

== ENCOUNTER → 2023-05-09 | Outpatient (CLI) | payer MEDICARE, OTHER ==
[2023-05-15 16:12] LABS: ANTINUCLEAR ANTIBODIES DIRECT Negative (Negative); FREE KAPPA LIGHT CHAINS SERUM 29.3 mg/L (3.3-19.4); KAPPA/LAMBDA RATIO SERUM 1.13 (0.26-1.65)
== END ==
LOC: M PLALAB 15:09
PROVIDERS: ATTEND Internal Medicine Hematology
DX: R55 Syncope and collapse (principal)

== ENCOUNTER → 2023-12-19 | Outpatient (REF) | payer MEDICARE, OTHER ==
[~2023-12-19] MED LIST changes: +NOXI1TAB PO
[2023-12-19 18:02] LABS: APPEARANCE, URINE HAZY (CLEAR); BACTERIA, URINE AUTO NEGATIVE (NEGATIVE); BILIRUBIN, URINE AUTO NEGATIVE (NEGATIVE); BLOOD, URINE BLOOD 2+ (NEGATIVE); COLOR, URINE YELLOW (YELLOW); GLUCOSE, URINE (UA) AUTO NEGATIVE (NEGATIVE); KETONE, URINE AUTO NEGATIVE (NEGATIVE); LEUKOCYTE ESTERASE, URINE AUTO NEGATIVE (NEGATIVE); NITRITE, URINE AUTO NEGATIVE (NEGATIVE); PROTEIN, URINE AUTO 1+ mg/dL (NEGATIVE); RBC, URINE AUTO 0 /HPF (0-3); SPECIFIC GRAVITY URINE AUTO 1.027 (1.002-1.035); SQUAMOUS EPITHELIAL CELL UR AU 6 /HPF (0-6); UROBILINOGEN, URINE AUTO 0.2 mg/dL (0.0-2.0); WBC, URINE AUTO 0 /HPF (0-3)
== END ==
LOC: M SFHCPLAZ 17:20
PROVIDERS: ATTEND Physician Assistant Medical
DX: R31.9 Hematuria, unspecified (principal)

== ENCOUNTER 2023-12-21 12:14 | Emergency (ER) | payer MEDICARE, OTHER ==
[~2023-12-21] VITALS: Ht 160 cm; Wt 85.9 kg
[~2023-12-21 12:14] MED LIST changes: -NOXI1TAB PO
[2023-12-21] MEDS ORDERED: NOXI1TAB PO (12:26)
[2023-12-21] MEDS: PANTOPRAZOLE 40MG VIAL IV ONE (13:10)
[2023-12-21] MEDS: NS 1,000 ML IV SCH (13:25)
[2023-12-21 13:38] LABS: HEMOGLOBIN 14.4 g/dl (12.0-15.5); MEAN CORPUSCULAR HEMOGLOBIN 28.8 pg (27.0-33.0); MEAN CORPUSCULAR HGB CONC 33.5 g/dl (32.0-36.5); PLATELET COUNT, AUTOMATED 189 10^3/uL (150-450); WHITE BLOOD COUNT 5.5 10^3/uL (4.0-10.0)
[2023-12-21 14:00] LABS: LIPASE 29 U/L (12-53)
[2023-12-21 14:03] LABS: ALBUMIN 3.2 G/DL (3.2-5.2); ALKALINE PHOSPHATASE 161 U/L (46-116); ALT/SGPT 90 U/L (7.0-40); AST/SGOT 75 U/L (<34); BILIRUBIN,DIRECT 0.1 MG/DL (<0.4); BILIRUBIN,TOTAL 0.3 MG/DL (0.3-1.2); BLOOD UREA NITROGEN 9 MG/DL (9-23); CARBON DIOXIDE LEVEL 26 MMOL/L (20-31); CHLORIDE LEVEL 108 MMOL/L (98-107); GLOMERULAR FILTRATION RATE > 60.0 (>45); GLUCOSE, FASTING 96 MG/DL (74-106); SODIUM LEVEL 140 MMOL/L (136-145); TOTAL PROTEIN 5.9 G/DL (5.7-8.2)
[2023-12-21] MEDS: ACETAMINOPHEN TAB 650MG DOSE (2X325MG) PO ONE (14:13)
[2023-12-21 14:14] LABS: ATYPICAL LYMPH 3 % (0-5); EOSINOPHILS 3 % (0-3); LYMPHOCYTES 35 % (16-44); MONOCYTES 7 % (0-5); NEUTROPHILS 52 % (28-66)
[2023-12-21 14:15] LABS: PLATELET ESTIMATE NORMAL (NORMAL)
[2023-12-21 15:39] VITALS: BP 131/79; TEMP 98.7; O2SAT 95
[2023-12-21] MEDS: MAGNESIUM CITRATE 300ML BTL PO ONE (15:58)
== END 2023-12-21 16:00 | disposition home or self-care (01) ==
LOC: M ED 12:14
DX: K59.00 Constipation, unspecified (principal); R53.83 Other fatigue; R31.9 Hematuria, unspecified; N20.0 Calculus of kidney; K21.9 Gastro-esophageal reflux disease without esophagitis; I51.9 Heart disease, unspecified; F17.200 Nicotine dependence, unspecified, uncomplicated; Z79.899 Other long term (current) drug therapy; Z88.0 Allergy status to penicillin; Z88.2 Allergy status to sulfonamides; Z88.1 Allergy status to other antibiotic agents

== ENCOUNTER → 2024-01-06 | Outpatient (REF) | payer MEDICARE, OTHER ==
[~2024-01-06] MED LIST changes: +NOXI1TAB PO
== END ==
LOC: M LAB REF 12:30
PROVIDERS: ATTEND Physician Assistant Medical
DX: B34.9 Viral infection, unspecified (principal)

== ENCOUNTER → 2024-01-06 | Outpatient (CLI) | payer MEDICARE, OTHER | LOC: M LAB 13:29 | PROVIDERS: ATTEND Physician Assistant Medical | DX: L00 Staphylococcal scalded skin syndrome (principal); B34.9 Viral infection, unspecified ==

== ENCOUNTER → 2024-04-02 | Outpatient (CLI) | payer MEDICARE, OTHER | LOC: M RAD 15:15 | PROVIDERS: ATTEND Internal Medicine Hematology | DX: Z12.2 Encounter for screening for malignant neoplasm of respiratory organs (principal); Z87.891 Personal history of nicotine dependence; R91.8 Other nonspecific abnormal finding of lung field; I70.0 Atherosclerosis of aorta; I25.10 Atherosclerotic heart disease of native coronary artery without angina pectoris ==

== ENCOUNTER → 2024-07-24 | Outpatient (CLI) | payer MEDICARE, OTHER | LOC: M WHC 13:59 | PROVIDERS: ATTEND Student in an Organized Health Care Education/Training Program | DX: Z12.31 Encounter for screening mammogram for malignant neoplasm of breast (principal); M81.0 Age-related osteoporosis without current pathological fracture; R92.323 Mammographic fibroglandular density, bilateral breasts ==

== ENCOUNTER → 2024-08-21 | Outpatient (REF) | payer MEDICARE, OTHER | LOC: M SFHCPLAZ 15:11 | PROVIDERS: ATTEND Student in an Organized Health Care Education/Training Program | DX: L57.0 Actinic keratosis (principal) ==

== ENCOUNTER → 2024-09-05 | Outpatient (CLI) | payer MEDICARE, OTHER | LOC: M RAD 09:32 | PROVIDERS: ATTEND Student in an Organized Health Care Education/Training Program | DX: R22.1 Localized swelling, mass and lump, neck (principal) ==

== ENCOUNTER → 2024-09-09 | Outpatient (CLI) | payer MEDICARE, OTHER ==
[2024-09-09 15:47] LABS: BLOOD UREA NITROGEN 12 MG/DL (9-23); CALCIUM LEVEL 9.5 MG/DL (8.3-10.6); CARBON DIOXIDE LEVEL 26 MMOL/L (20-31); CHLORIDE LEVEL 108 MMOL/L (98-107); CREATININE FOR GFR 0.66 MG/DL (0.55-1.30); GLOMERULAR FILTRATION RATE > 60.0 (>45); GLUCOSE, FASTING 86 MG/DL (74-106); POTASSIUM SERUM 4.7 MMOL/L (3.5-5.1); SODIUM LEVEL 142 MMOL/L (136-145)
== END ==
LOC: M PLALAB 11:56
PROVIDERS: ATTEND Internal Medicine Cardiovascular Disease
DX: I10 Essential (primary) hypertension (principal)

== ENCOUNTER → 2024-09-29 | Outpatient (CLI) | payer MEDICARE, OTHER | LOC: M WHC 16:23 | PROVIDERS: ATTEND Student in an Organized Health Care Education/Training Program | DX: R22.1 Localized swelling, mass and lump, neck (principal); Z53.9 Procedure and treatment not carried out, unspecified reason ==

== ENCOUNTER → 2025-02-17 | Outpatient (REF) | payer MEDICARE, OTHER ==
[~2025-02-17] MED LIST changes: -ACE65ERTAB PO; +ACET-1593 PO; -PRAV40TA2 PO; +PRAV40TA85 PO; -PRAV80TA2; +PRAV80TA75
[2025-02-17 18:33] LABS: APPEARANCE, URINE HAZY (CLEAR); BACTERIA, URINE AUTO 1+ (NEGATIVE); BILIRUBIN, URINE AUTO NEGATIVE (NEGATIVE); BLOOD, URINE BLOOD 2+ (NEGATIVE); GLUCOSE, URINE (UA) AUTO NEGATIVE (NEGATIVE); KETONE, URINE AUTO NEGATIVE (NEGATIVE); LEUKOCYTE ESTERASE, URINE AUTO 1+ (NEGATIVE); MUCUS, URINE SMALL (NEGATIVE); NITRITE, URINE AUTO NEGATIVE (NEGATIVE); PROTEIN, URINE AUTO 1+ mg/dL (NEGATIVE); RBC, URINE AUTO 11 /HPF (0-3); SPECIFIC GRAVITY URINE AUTO 1.008 (1.002-1.035); SQUAMOUS EPITHELIAL CELL UR AU 2 /HPF (0-6); TRANSITIONAL EPITHELIAL AUTO <1 /HPF; UROBILINOGEN, URINE AUTO 0.2 mg/dL (0.0-2.0); WBC, URINE AUTO 8 /HPF (0-3)
== END ==
LOC: M LAB REF 17:16
PROVIDERS: ATTEND Physician Assistant Medical
DX: N39.0 Urinary tract infection, site not specified (principal)